=== PATIENT | female | born 1970 | race Hispanic/Latino ===

== ENCOUNTER 2017-08-28 17:38 | Emergency (ER) | payer SELFPAY ==
--- NOTE | 2017-08-28 19:15 | RAD REPORT ---
EXAM DESCRIPTION: RAD - Chest Pa And Lat (2 Views) - 08/28/2017 6:17 pm CLINICAL HISTORY: Cough and congestion, body aches, possible viral infection COMPARISON: November 2011 TECHNIQUE: PA and lateral views of the chest were obtained. FINDINGS: The lungs are clear. Heart size is normal and central vasculature is within normal limit s. No pleural effusion or pneumothorax seen. No acute bony finding noted. No aortic abnormality. IMPRESSION: No acute cardiopulmonary process. No suspicious change from comparison.
--- NOTE | 2017-08-28 19:19 | ER ---
Nurse's Notes [facility] Name: Lauren Rinaldi Age: 47 yrs Sex: Female : 1970 Arrival Date: 08/28/2017 Time: 17:42 Bed 30 Private MD: Diagnosis: Acute upper respiratory infection, unspecified Presentation: 08/28 17:54 Presenting complaint: Patient states: Saturdayaugust 24 i started getting flu like ch sympotoms, cough, congestion, body aches. Transition of care: patient was not received from another setting of care. Onset of symptoms was August 24, 2017. Initial Sepsis Screen: Does the patient meet any 2 criteria? No. Patient's initial sepsis screen is negative. Does the patient have a suspected source of infection? No. Patient's initial sepsis screen is negative. Care prior to arrival: None. theraflu. 17:54 Method Of Arrival: Ambulatory 17:54 Acuity: CLAYTON 3 Triage Assessment: 17:55 General: Appears in no apparent distress. uncomfortable, Behavior is calm, cooperative, appropriate for age. Pain: Denies pain. Respiratory: Airway is patent Respiratory effort is even, unlabored, Breath sounds with wheezes in right posterior lower lobe fine expiratory wheeze. Derm: Skin is pink, warm \T\ dry. TECHNICIAN SUPPORT ASSOCIATION: 17:55 LMP 08/17/2017 Historical: - Allergies: 17:55 No Known Allergies; - Home Meds: 17:55 None [Active]; - PMHx: 17:55 None; - PSHx: 18:00 Tubal ligation; - Immunization history:: Adult Immunizations up to date, Last tetanus immunization: unknown, Flu vaccine is not up to date. - Social history:: Smoking status: Patient/guardian denies using tobacco. Screenin:19 Abuse screen: Denies threats or abuse. Nutritional screening: No deficits noted. mb3 Tuberculosis screening: No symptoms or risk factors identified. Fall Risk None identified. Assessment: 19:12 General: Appears in no apparent distress. comfortable, Behavior is calm, cooperative, mb3 appropriate for age. Neuro: No deficits noted. Level of Consciousness is awake, alert, obeys commands, Oriented to person, place, time, situation. Cardiovascular: No deficits noted. Heart tones present Capillary refill < 3 seconds. Respiratory: Reports cough that is productive, persistent Respiratory effort is even, unlabored, Respiratory pattern is regular, symmetrical, Breath sounds are clear bilaterally. GI: No signs and/or symptoms were reported involving the gastrointestinal system. Abdomen is round obese. : No signs and/or symptoms were reported regarding the genitourinary system. EENT: Reports nasal congestion since Saturday morning nasal discharge that is watery. Musculoskeletal: No signs and/or symptoms reported regarding the musculoskeletal system. 20:10 Reassessment: Patient appears in no apparent distress at this time. Patient is alert, aa1 oriented x 3, equal unlabored respirations, skin warm/dry/pink. Discussed d/c \T\ f/u instructions with pt; denies questions or concerns Patient states feeling better. Vital Signs: 17:55 BP 140 / 85; Pulse 115; Resp 22; Temp 98.3(O); Pulse Ox 99% on R/A; Weight 108.86 kg; ch Height 5 ft. 2 in. (157.48 cm); Pain 1/10; 19:21 BP 151 / 96; Pulse 101; Resp 18; Pulse Ox 100% on R/A; Pain 0/10; mb3 20:10 BP 126 / 79; Pulse 89; Resp 18; Pulse Ox 99% on R/A; aa1 17:55 Body Mass Index 43.90 (108.86 kg, 157.48 cm) ch 17:55 when pt coughs, pain is a 6 ch ED Course: 17:42 Patient arrived in ED. sb2 17:55 Triage completed. ch 17:55 Arm band placed on left wrist. Patient placed in waiting room. ch 18:11 Patient moved to radiology via wheelchair. jb2 18:12 X-ray completed. Patient tolerated procedure well. jb2 18:12 Patient moved back from radiology. jb2 18:13 XRAY Chest Pa And Lat (2 Views) In Process Unspecified. EDMS 18:52 Jesse Aly, DERICK is Primary Nurse. mb3 18:56 Rosario Jeong FNP-C is PHCP. kb 18:56 Edmund Mills MD is Attending Physician. kb 19:20 Patient has correct armband on for positive identification. Bed in low position. Call mb3 light in reach. Side rails up X 1. 19:21 Throat Culture Sent. mb3 20:10 No provider procedures requiring assistance completed. Patient did not have IV access aa1 during this emergency room visit. Administered Medications: No medications were administered Outcome: 19:19 Discharge ordered by . toby 20:10 Discharged to home ambulatory. aa1 20:10 Condition: good 20:10 Discharge instructions given to patient, Instructed on discharge instructions, follow up and referral plans. medication usage, Demonstrated understanding of instructions, follow-up care, medications, Prescriptions given X 1. 20:11 Patient left the ED. aa1 Signatures: Dispatcher [employer] EDMS Rosario Jeong, OPTICAL INSTRUMENT ASSEMBLER-C OPTICAL INSTRUMENT ASSEMBLER-Evie Choi, RN RN Kathleen Crawley RN RN aa1 Jorgito Lagunas2 Tiffani Grijalva2 Jesse Aly, RN RN mb3 Corrections: (The following items were deleted from the chart) 18:00 17:55 PSHx: None; [facility]
--- NOTE | 2017-08-28 19:20 | EDPHYS ---
Physician Documentation [facility] Name: Lauren Rinaldi Age: 47 yrs Sex: Female : 1970 Arrival Date: 08/28/2017 Time: 17:42 Bed 30 Private MD: ED Physician Edmund Mills HPI: 08/28 19:18 This 47 yrs old Female presents to ER via Ambulatory with complaints of Flu kb Symptoms. 19:18 The patient or guardian reports cough, that is intermittent, described as mild, with no kb sputum. Onset: The symptoms/episode began/occurred 5 day(s) ago. Severity of symptoms: At their worst the symptoms were moderate, in the emergency department the symptoms are unchanged. Modifying factors: The symptoms are alleviated by nothing, the symptoms are aggravated by nothing. Associated signs and symptoms: Pertinent positives: rhinorrhea, sore throat, Pertinent negatives: chest pain, diarrhea, ear ache, fever, nausea, vomiting. The patient has not experienced similar symptoms in the past. The patient has not recently seen a physician. NUCLEAR PHYSICIAN: 17:55 LMP 08/17/2017 Historical: - Allergies: 17:55 No Known Allergies; ch - Home Meds: 17:55 None [Active]; ch - PMHx: 17:55 None; ch - PSHx: 18:00 Tubal ligation; ch - Immunization history:: Adult Immunizations up to date, Last tetanus immunization: unknown, Flu vaccine is not up to date. - Social history:: Smoking status: Patient/guardian denies using tobacco. ROS: 19:17 Constitutional: Negative for fever, chills, and weight loss, Cardiovascular: Negative kb for chest pain, palpitations, and edema, Abdomen/GI: Negative for abdominal pain, nausea, vomiting, diarrhea, and constipation, Back: Negative for injury and pain, : Negative for injury, bleeding, discharge, and swelling, MS/Extremity: Negative for injury and deformity, Skin: Negative for injury, rash, and discoloration, Neuro: Negative for headache, weakness, numbness, tingling, and seizure. 19:17 ENT: Positive for rhinorrhea, sinus congestion, sore throat. 19:17 Respiratory: Positive for cough, Negative for dyspnea on exertion, hemoptysis, orthopnea, pleurisy, shortness of breath, sputum production, wheezing. Exam: 19:17 Constitutional: This is a well developed, well nourished patient who is awake, alert, kb and in no acute distress. Head/Face: Normocephalic, atraumatic. Neck: Trachea midline, no thyromegaly or masses palpated, and no cervical lymphadenopathy. Supple, full range of motion without nuchal rigidity, or vertebral point tenderness. No Meningismus. Chest/axilla: Normal chest wall appearance and motion. Nontender with no deformity. No lesions are appreciated. Cardiovascular: Regular rate and rhythm with a normal S1 and S2. No gallops, murmurs, or rubs. Normal PMI, no JVD. No pulse deficits. Respiratory: Lungs have equal breath sounds bilaterally, clear to auscultation and percussion. No rales, rhonchi or wheezes noted. No increased work of breathing, no retractions or nasal flaring. Abdomen/GI: Soft, non-tender, with normal bowel sounds. No distension or tympany. No guarding or rebound. No evidence of tenderness throughout. Skin: Warm, dry with normal turgor. Normal color with no rashes, no lesions, and no evidence of cellulitis. MS/ Extremity: Pulses equal, no cyanosis. Neurovascular intact. Full, normal range of motion. Neuro: Awake and alert, GCS 15, oriented to person, place, time, and situation. Cranial nerves II-XII grossly intact. Motor strength 5/5 in all extremities. Sensory grossly intact. Cerebellar exam normal. Normal gait. 19:17 ENT: External ear(s): are unremarkable, Ear canal(s): are normal, TM's: are normal, Nose: is normal, Mouth: is normal, Posterior pharynx: Airway: normal, no evidence of obstruction, Tonsils: bilaterally enlarged, Uvula: normal, midline, swelling, that is mild, erythema, is not appreciated, exudate, is not appreciated. Vital Signs: 17:55 BP 140 / 85; Pulse 115; Resp 22; Temp 98.3(O); Pulse Ox 99% on R/A; Weight 108.86 kg; ch Height 5 ft. 2 in. (157.48 cm); Pain 1/10; 19:21 BP 151 / 96; Pulse 101; Resp 18; Pulse Ox 100% on R/A; Pain 0/10; mb3 20:10 BP 126 / 79; Pulse 89; Resp 18; Pulse Ox 99% on R/A; aa1 17:55 Body Mass Index 43.90 (108.86 kg, 157.48 cm) 17:55 when pt coughs, pain is a 6 ch MDM: 18:57 Patient medically screened. kb 19:17 Data reviewed: vital signs, nurses notes. Data interpreted: Pulse oximetry: on room air kb is 99 %. Interpretation: normal. Counseling: I had a detailed discussion with the patient and/or guardian regarding: the historical points, exam findings, and any diagnostic results supporting the discharge/admit diagnosis, lab results, radiology results, the need for outpatient follow up, a family practitioner, to return to the emergency department if symptoms worsen or persist or if there are any questions or concerns that arise at home. 08/28 18:00 Order name: Flu; Complete Time: 18:57 08/28 18:00 Order name: Strep; Complete Time: 18:57 08/28 18:00 Order name: XRAY Chest Pa And Lat (2 Views); Complete Time: 19:16 08/28 18:26 Order name: Throat Culture [facility] 08/28 18:58 Order name: Vital Signs; Complete Time: 19:21 kb Administered Medications: No medications were administered Disposition: 22:36 Co-signature as Attending Physician, Edmund Mills MD I agree with the assessment and kdr plan of care. Disposition: 08/28/17 19:19 Discharged to Home. Impression: Acute upper respiratory infection, unspecified. - Condition is Stable. - Discharge Instructions: Upper Respiratory Infection, Adult, [id number]. - Prescriptions for Tessalon Perles 100 mg Oral Capsule - take 1 capsule by ORAL route every 8 hours As needed; 15 capsule. - Medication Reconciliation Form, Thank You Letter, Antibiotic Education, Prescription Opioid Use, Work release form form. - Follow up: Emergency Department; When: As needed; Reason: Worsening of condition. Follow up: Private Physician; When: 2 - 3 days; Reason: Recheck today's complaints, Continuance of care, Re-evaluation by your physician. Signatures: Dispatcher [facility] Rosario Jeong FNP-C FNP-Ckb Hammond, Christina RN RN Kathleen Crawley RN RN aa Edmund Mills MD MD kdr Corrections: (The following items were deleted from the chart) 18:00 17:55 PSHx: None; [facility] 20:11 19:19 08/28/2017 19:19 Discharged to Home. Impression: Acute upper respiratory aa1 infection, unspecified. Condition is Stable. Forms are Medication Reconciliation Form, Thank You Letter, Antibiotic Education, Prescription Opioid Use. Follow up: Emergency Department; When: As needed; Reason: Worsening of condition. Follow up: Private Physician; When: 2 - 3 days; Reason: Recheck today's complaints, Continuance of care, Re-evaluation by your physician. kb
[2017-08-28 20:22] VITALS: TEMP 98.3
[2017-08-28 20:24] VITALS: BP 126/79; O2SAT 99
== END 2017-08-28 20:11 | disposition home or self-care (01) ==
LOC: ER 17:38
DX: J06.9 Acute upper respiratory infection, unspecified (principal)
CPT/HCPCS: 71046; 87070; 87081; 87804; 99283

== ENCOUNTER 2017-11-29 16:18 | Emergency (ER) | payer SELFPAY ==
[2017-11-29] MEDS ORDERED: IBUPROFEN 400 MG TAB ONE (16:37)
--- NOTE | 2017-11-29 17:06 | RAD REPORT ---
EXAM DESCRIPTION: RAD - Ankle Right 3 View - 11/29/2017 4:59 pm CLINICAL HISTORY: PAIN COMPARISON: No comparisons FINDINGS: Soft tissue swelling is seen in the region of the lateral malleolus. Minimal bony fragment ation in the region may be acute or chronic avulsion injury. Prominent calcaneal spur seen.
--- NOTE | 2017-11-29 17:28 | EDPHYS ---
Physician Documentation [facility] Name: Lauren Rinaldi Age: 47 yrs Sex: Female : 1970 Arrival Date: 11/29/2017 Time: 16:20 Bed 14 Private MD: None, None ED Physician Efrain Vazquez HPI: 11/29 16:33 This 47 yrs old Female presents to ER via Ambulatory with complaints of Ankle cp Injury. 16:33 The patient presents with pain, that is acute. The complaints affect the right medial cp malleolus. Onset: The symptoms/episode began/occurred today. Context: The problem was sustained at home, resulted from striking area against bed yesterday. Associated signs and symptoms: Pertinent negatives: fever, numbness, tingling. Modifying factors: the symptoms are aggravated by weight bearing. 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 - Social history:: Smoking status: Patient/guardian denies using tobacco, Patient/guardian denies using alcohol. - Ebola Screening: : Patient negative for fever greater than or equal to 101.5 degrees Fahrenheit, and additional compatible Ebola Virus Disease symptoms Patient denies exposure to infectious person Patient denies travel to an Ebola-affected area in the 21 days before illness onset. ROS: 16:35 Constitutional: Negative for body aches, chills, fever, poor PO intake. cp 16:35 Eyes: Negative for injury, pain, redness, and discharge. cp 16:35 ENT: Negative for drainage from ear(s), ear pain, sore throat, difficulty swallowing, difficulty handling secretions. 16:35 Cardiovascular: Negative for chest pain, edema, palpitations. 16:35 Respiratory: Negative for cough, shortness of breath, wheezing. 16:35 Abdomen/GI: Negative for abdominal pain, nausea, vomiting, and diarrhea. 16:35 MS/extremity: Positive for pain, tenderness, of the right medial malleolus, Negative for decreased range of motion, deformity, paresthesias. 16:35 Skin: Negative for cellulitis, rash. 16:35 Neuro: Negative for numbness, tingling, weakness. 16:35 All other systems are negative. Exam: 16:48 Constitutional: The patient appears in no acute distress, alert, awake, comfortable, cp well developed, well nourished. 16:48 Head/Face: Normocephalic, atraumatic. cp 16:48 Eyes: Periorbital structures: appear normal, Conjunctiva: normal, no exudate, no cp injection, Lids and lashes: appear normal, bilaterally. 16:48 ENT: External ear(s): are unremarkable, Nose: is normal, Posterior pharynx: is normal, airway is patent. 16:48 Chest/axilla: Inspection: normal. cp 16:48 Cardiovascular: Rate: normal. 16:48 Respiratory: the patient does not display signs of respiratory distress, Respirations: normal, no use of accessory muscles, no retractions, no splinting, no tachypnea. 16:48 Abdomen/GI: Exam negative for discomfort, distension, guarding, Inspection: abdomen appears normal. 16:48 Back: pain, is absent, ROM is normal. 16:48 Musculoskeletal/extremity: Extremities: grossly normal except: noted in the right medial malleolus: swelling, tenderness, There is no evidence of decreased ROM, deformity, Perfusion: the extremity is normally perfused throughout, Sensation intact. 16:48 Skin: cellulitis, is not appreciated, no rash present. Vital Signs: 16:23 BP 126 / 79; Pulse 90; Resp 18; Temp 97.96(TE); Pulse Ox 97% on R/A; Weight 99.79 kg; hj Height 5 ft. 2 in. (157.48 cm); Pain 4/10; 16:23 Body Mass Index 40.24 (99.79 kg, 157.48 cm) hj MDM: 16:25 Patient medically screened. cp 17:00 Differential diagnosis: fracture, sprain, contusion, dislocation. cp 17:25 Data reviewed: vital signs, nurses notes, radiologic studies, plain films. cp 17:25 Test interpretation: by ED physician or midlevel provider: plain radiologic studies. cp Counseling: I had a detailed discussion with the patient and/or guardian regarding: the historical points, exam findings, and any diagnostic results supporting the discharge/admit diagnosis, radiology results, to return to the emergency department if symptoms worsen or persist or if there are any questions or concerns that arise at home. 11/29 16:31 Order name: XRAY Ankle RIGHT 3 view; Complete Time: 17:21 cp 11/29 17:22 Interpretation: Report reviewed. cp Administered Medications: 16:34 Drug: Ibuprofen 800 mg Route: PO; la1 17:14 Follow up: Response: No adverse reaction; Pain is decreased em Disposition: 11/29/17 17:27 Discharged to Home. Impression: Pain in right ankle and joints of right foot. - Condition is Stable. - Discharge Instructions: Ankle Pain. - Prescriptions for Ibuprofen 800 mg Oral Tablet - take 1 tablet by ORAL route every 8 hours As needed take with food; 30 tablet. - Medication Reconciliation Form, Thank You Letter, Antibiotic Education, Prescription Opioid Use form. - Follow up: Private Physician; When: 5 - 6 days; Reason: if pain continues. - Problem is new. - Symptoms have improved. Addendum: 12/03/2017 22:13 Co-signature as Attending Physician, Efrain Vazquez MD Available for consultation at p s1 all times. . Signatures: Dispatcher [employer] EDOH Edvin Reyna, EMAIL PRODUCTION SPECIALIST EMAIL PRODUCTION SPECIALIST em Los Rouse RN RN la1 Maurilio Lindo RN RN hj Yunior Vaz, JOSSUE PA Efrain Chino MD MD ps1 Corrections: (The following items were deleted from the chart) 11/29 17:43 17:27 11/29/2017 17:27 Discharged to Home. Impression: Pain in right ankle and joints em of right foot. Condition is Stable. Forms are Medication Reconciliation Form, Thank You Letter, Antibiotic Education, Prescription Opioid Use. Follow up: Private Physician; When: 5 - 6 days; Reason: if pain continues. Problem is new. Symptoms have improved. cp
--- NOTE | 2017-11-29 17:28 | ER ---
Nurse's Notes [facility] Name: Lauren Rinaldi Age: 47 yrs Sex: Female : 1970 Arrival Date: 11/29/2017 Time: 16:20 Bed 14 Private MD: None, None Diagnosis: Pain in right ankle and joints of right foot Presentation: 11/29 16:21 Presenting complaint: Patient states: i hurt my R ankle yesterday on the bed; denies hj swelling; pain 07/30;. Transition of care: patient was not received from another setting of care. Onset of symptoms was November 29, 2017. Risk Assessment: Do you want to hurt yourself or someone else? Patient reports no desire to harm self or others. Initial Sepsis Screen: Does the patient meet any 2 criteria? No. Patient's initial sepsis screen is negative. Does the patient have a suspected source of infection? No. Patient's initial sepsis screen is negative. Care prior to arrival: None. 16:21 Method Of Arrival: Ambulatory 16:21 Acuity: CLAYTON 4 hj Triage Assessment: 16:22 General: Appears in no apparent distress. uncomfortable, Behavior is calm, cooperative, hj appropriate for age. Pain: Complains of pain in right medial malleolus. Musculoskeletal: Reports pain in right medial malleolus. 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 - Social history:: Smoking status: Patient/guardian denies using tobacco, Patient/guardian denies using alcohol. - Ebola Screening: : Patient negative for fever greater than or equal to 101.5 degrees Fahrenheit, and additional compatible Ebola Virus Disease symptoms Patient denies exposure to infectious person Patient denies travel to an Ebola-affected area in the 21 days before illness onset. Screenin:22 Abuse screen: Denies threats or abuse. Denies injuries from another. Nutritional hj screening: No deficits noted. Tuberculosis screening: No symptoms or risk factors identified. Fall Risk None identified. Assessment: 16:35 Reassessment: Patient is alert, oriented x 3, equal unlabored respirations, skin la1 warm/dry/pink. Musculoskeletal: Circulation, motion, and sensation intact. Capillary refill < 3 seconds, is brisk, in bilateral toes. Range of motion: limited in right ankle. 17:15 Reassessment: Patient appears in no apparent distress at this time. Patient and/or em family updated on plan of care and expected duration. Pain level reassessed. Patient is alert, oriented x 3, equal unlabored respirations, skin warm/dry/pink. Patient states feeling better. Vital Signs: 16:23 BP 126 / 79; Pulse 90; Resp 18; Temp 97.96(TE); Pulse Ox 97% on R/A; Weight 99.79 kg; hj Height 5 ft. 2 in. (157.48 cm); Pain 4/10; 16:23 Body Mass Index 40.24 (99.79 kg, 157.48 cm) hj ED Course: 16:20 Patient arrived in ED. sb2 16:20 None, None is Private Physician. sb2 16:22 Triage completed. hj 16:23 Arm band placed on left wrist. hj 16:24 Patient has correct armband on for positive identification. Bed in low position. Call hj light in reach. Side rails up X 1. 16:25 Yunior Vaz PA is PHCP. cp 16:25 Efrain Vazquez MD is Attending Physician. cp 16:34 Los Rouse, DERICK is Primary Nurse. la1 16:35 No provider procedures requiring assistance completed. Patient did not have IV access la1 during this emergency room visit. 16:59 X-ray completed. Portable x-ray completed in exam room. Patient tolerated procedure ml well. 17:00 XRAY Ankle RIGHT 3 view In Process Unspecified. EDMS Administered Medications: 16:34 Drug: Ibuprofen 800 mg Route: PO; la1 17:14 Follow up: Response: No adverse reaction; Pain is decreased em Outcome: 17:27 Discharge ordered by . cp 17:43 Discharged to home ambulatory. em 17:43 Condition: good 17:43 Discharge instructions given to patient, Instructed on discharge instructions, follow up and referral plans. medication usage, Demonstrated understanding of instructions, follow-up care, medications, Prescriptions given X 1. 17:43 Patient left the ED. em Signatures: Dispatcher [employer] EDMS Edvin Reyna LVN CYLINDER MACHINE OPERATOR PULP DRIER Imelda Levine Lee, RN RN la1 Maurilio Lindo RN RN hj Yunior Vaz PA PA cp Billeau, Sheri sb2 Corrections: (The following items were deleted from the chart) 16:25 16:23 Pulse 90bpm; Resp 18bpm; Pulse Ox 97% RA; Temp 97.96F Temporal; 99.79 kg; Height hj 5 ft. 2 in.; BMI: 40.2; Pain 4/10; hj
== END 2017-11-29 17:43 | disposition home or self-care (01) ==
LOC: ER 16:18
DX: M25.571 Pain in right ankle and joints of right foot (principal)
CPT/HCPCS: 99283

== ENCOUNTER 2018-04-14 09:50 | Emergency (ER) | payer SELFPAY ==
--- NOTE | 2018-04-14 10:22 | ER ---
Nurse's Notes [facility] Name: Lauren Rinaldi Age: 47 yrs Sex: Female : 1970 Arrival Date: 04/14/2018 Time: 09:51 Bed 24 Private MD: None, None Diagnosis: Fever, unspecified;Acute upper respiratory infection, unspecified Presentation: 04/14 10:10 Presenting complaint: Patient states: cough, sore throat, congestion on and off x 2 aa5 weeks ago. Pt reports it got worse 3 days ago. Transition of care: patient was not received from another setting of care. Onset of symptoms was March 2018. Risk Assessment: Do you want to hurt yourself or someone else? Patient reports no desire to harm self or others. Initial Sepsis Screen: Does the patient meet any 2 criteria? No. Patient's initial sepsis screen is negative. Does the patient have a suspected source of infection? No. Patient's initial sepsis screen is negative. Care prior to arrival: None. 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 - Social history:: Smoking status: Patient/guardian denies using tobacco. - Ebola Screening: : No symptoms or risks identified at this time. - Family history:: not pertinent. Screenin:36 Abuse screen: Denies threats or abuse. Denies injuries from another. Nutritional aj screening: No deficits noted. Tuberculosis screening: No symptoms or risk factors identified. Fall Risk None identified. Assessment: 10:36 General: Appears in no apparent distress. comfortable, Behavior is calm, cooperative, aj appropriate for age. Pain: Denies pain. Neuro: Level of Consciousness is awake, alert, obeys commands, Oriented to person, place, time, situation, Appropriate for age. Respiratory: Airway is patent Respiratory effort is even, unlabored, Respiratory pattern is regular, symmetrical, Breath sounds are clear bilaterally. Respiratory: Reports cough that is. EENT: Throat is reddened. Derm: Skin is intact, is healthy with good turgor, Skin is pink, warm \T\ dry. normal. Vital Signs: 10:11 BP 158 / 94; Pulse 99; Resp 18 S; Temp 99.1(O); Pulse Ox 97% on R/A; Weight 124.74 kg aa5 (R); Height 5 ft. 2 in. (157.48 cm) (R); Pain 6/10; 10:11 Body Mass Index 50.30 (124.74 kg, 157.48 cm) aa5 ED Course: 09:51 Patient arrived in ED. sb2 09:51 None, None is Private Physician. sb2 10:10 Triage completed. aa5 10:10 Arm band placed on. aa 10:13 Yunior Amaro MD is Attending Physician. [facility] 10:15 Radha Maravilla RN is Primary Nurse. aj 10:36 Patient has correct armband on for positive identification. aj 10:36 No provider procedures requiring assistance completed. Patient did not have IV access aj during this emergency room visit. Administered Medications: 10:21 CANCELLED (Duplicate Order): Zithromax 500 mg PO once [place] 10:37 Drug: Augmentin 875 mg Route: PO; aj 10:57 Follow up: Response: No adverse reaction Outcome: 10:22 Discharge ordered by . [place]andria 10:57 Discharged to home ambulatory. aj 10:57 Condition: good 10:57 Discharge instructions given to patient, Instructed on discharge instructions, follow up and referral plans. medication usage, Demonstrated understanding of instructions, follow-up care, medications, Prescriptions given X 1. 10:57 Patient left the ED. aj Signatures: Radha Maravilla, RN RN Yunior Andujar MD MD cha Calderon, Audri RN RN aa5 Tiffani Grijalva sb2
--- NOTE | 2018-04-14 10:23 | EDPHYS ---
Physician Documentation [facility] Name: Lauren Rinaldi Age: 47 yrs Sex: Female : 1970 Arrival Date: 04/14/2018 Time: 09:51 Bed 24 Private MD: None, None ED Physician Yunior Amaro HPI: 04/14 10:18 This 47 yrs old Female presents to ER via Ambulatory with complaints of Sore alexandria Throat, STUFFY NOSE. 10:18 The patient presents with sore throat. The patient describes throat pain as burning, alexandria constant. Onset: The symptoms/episode began/occurred 2 day(s) ago. 10:18 Severity of symptoms: At their worst the symptoms were mild, in the emergency alexandria department the symptoms are unchanged. Modifying factors: The symptoms are alleviated by nothing, the symptoms are aggravated by nothing. Associated signs and symptoms: Pertinent positives: cough, Sore throat. 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 - Social history:: Smoking status: Patient/guardian denies using tobacco. - Ebola Screening: : No symptoms or risks identified at this time. - Family history:: not pertinent. ROS: 10:18 Constitutional: Negative for fever, chills, and weight loss, Eyes: Negative for injury, [place]andria pain, redness, and discharge, Neck: Negative for injury, pain, and swelling, Cardiovascular: Negative for chest pain, palpitations, and edema, Respiratory: Negative for shortness of breath, cough, wheezing, and pleuritic chest pain, Abdomen/GI: Negative for abdominal pain, nausea, vomiting, diarrhea, and constipation, Back: Negative for injury and pain, : Negative for injury, bleeding, discharge, and swelling, MS/Extremity: Negative for injury and deformity, Skin: Negative for injury, rash, and discoloration, Neuro: Negative for headache, weakness, numbness, tingling, and seizure. 10:18 ENT: Positive for rhinorrhea, sore throat. Exam: 10:18 Constitutional: This is a well developed, well nourished patient who is awake, alert, alexandria and in no acute distress. Head/Face: Normocephalic, atraumatic. Eyes: Pupils equal round and reactive to light, extra-ocular motions intact. Lids and lashes normal. Conjunctiva and sclera are non-icteric and not injected. Cornea within normal limits. Periorbital areas with no swelling, redness, or edema. Neck: Trachea midline, no thyromegaly or masses palpated, and no cervical lymphadenopathy. Supple, full range of motion without nuchal rigidity, or vertebral point tenderness. No Meningismus. Chest/axilla: Normal chest wall appearance and motion. Nontender with no deformity. No lesions are appreciated. Cardiovascular: Regular rate and rhythm with a normal S1 and S2. No gallops, murmurs, or rubs. Normal PMI, no JVD. No pulse deficits. Respiratory: Lungs have equal breath sounds bilaterally, clear to auscultation and percussion. No rales, rhonchi or wheezes noted. No increased work of breathing, no retractions or nasal flaring. Abdomen/GI: Soft, non-tender, with normal bowel sounds. No distension or tympany. No guarding or rebound. No evidence of tenderness throughout. Back: No spinal tenderness. No costovertebral tenderness. Full range of motion. Skin: Warm, dry with normal turgor. Normal color with no rashes, no lesions, and no evidence of cellulitis. MS/ Extremity: Pulses equal, no cyanosis. Neurovascular intact. Full, normal range of motion. Neuro: Awake and alert, GCS 15, oriented to person, place, time, and situation. Cranial nerves II-XII grossly intact. Motor strength 5/5 in all extremities. Sensory grossly intact. Cerebellar exam normal. Normal gait. Psych: Awake, alert, with orientation to person, place and time. Behavior, mood, and affect are within normal limits. 10:18 ENT: Nose: Posterior pharynx: Tonsils: are normal in appearance, Uvula: normal, swelling, is not appreciated, erythema, that is mild, exudate, is not appreciated. Vital Signs: 10:11 BP 158 / 94; Pulse 99; Resp 18 S; Temp 99.1(O); Pulse Ox 97% on R/A; Weight 124.74 kg aa5 (R); Height 5 ft. 2 in. (157.48 cm) (R); Pain 6/10; 10:11 Body Mass Index 50.30 (124.74 kg, 157.48 cm) aa5 MDM: 10:14 Patient medically screened. [facility] 10:20 Data reviewed: vital signs, nurses notes. [facility] Administered Medications: 10:21 CANCELLED (Duplicate Order): Zithromax 500 mg PO once [facility] 10:37 Drug: Augmentin 875 mg Route: PO; 10:57 Follow up: Response: No adverse reaction Disposition: 04/14/18 10:22 Discharged to Home. Impression: Fever, unspecified, Acute upper respiratory infection, unspecified. - Condition is Stable. - Discharge Instructions: Upper Respiratory Infection, Adult, Cool Mist Vaporizer, Upper Respiratory Infection, Adult, [id number], Cough, Adult. - Prescriptions for Augmentin 875- 125 mg Oral Tablet - take 1 tablet by ORAL route every 12 hours for 10 days; 20 tablet. - Medication Reconciliation Form, Thank You Letter, Antibiotic Education, Prescription Opioid Use form. - Follow up: Private Physician; When: 2 - 3 days; Reason: Recheck today's complaints, Continuance of care, Re-evaluation by your physician. - Problem is new. - Symptoms have improved. Signatures: Dispatcher [employer] EDRadha Bolivar RN RN aj Anderson, Corey, MD MD cha Calderon, Audri, RN RN aa5 Corrections: (The following items were deleted from the chart) 10:21 10:18 Zithromax 500 mg PO once ordered. [facility] 10:35 10:16 Influenza Screen (A \T\ B)+BA.LAB.BRZ ordered. [facility] 10:35 10:16 Group A Streptococcus Rapid Sc+BA.LAB.BRZ ordered. [facility] 10:57 10:22 04/14/2018 10:22 Discharged to Home. Impression: Fever, unspecified; Acute upper aj respiratory infection, unspecified. Condition is Stable. Forms are Medication Reconciliation Form, Thank You Letter, Antibiotic Education, Prescription Opioid Use. Follow up: Private Physician; When: 2 - 3 days; Reason: Recheck today's complaints, Continuance of care, Re-evaluation by your physician. Problem is new. Symptoms have improved. [facility]
[2018-04-14] MEDS ORDERED: AMOX/K CLAV 875 MG TAB ONE (10:43)
== END 2018-04-14 10:57 | disposition home or self-care (01) ==
LOC: ER 09:50
DX: J06.9 Acute upper respiratory infection, unspecified (principal)
CPT/HCPCS: 99283

== ENCOUNTER 2018-05-24 12:27 | Emergency (ER) | payer SELFPAY ==
[2018-05-24] MEDS ORDERED: IPRATROPIUM BROM 0.5MG/2.5ML ONE (12:51)
[2018-05-24] MEDS ORDERED: ALBUTEROL 2.5 MG/3 ML NEB SOL ONE (12:51)
--- NOTE | 2018-05-24 13:28 | ER ---
Nurse's Notes [facility] Name: Lauren Rinaldi Age: 48 yrs Sex: Female : 1970 Arrival Date: 05/24/2018 Time: 12:30 Bed 12 Private MD: Diagnosis: Acute upper respiratory infection, unspecified Presentation: 05/24 12:34 Presenting complaint: Patient states: Sore throat and cough for one day, pt reports la1 others at work are sick with similar sx, also reprots diarrhea, denies vomiting. Transition of care: patient was not received from another setting of care. Onset of symptoms was May 24, 2018. Risk Assessment: Do you want to hurt yourself or someone else? Patient reports no desire to harm self or others. Initial Sepsis Screen: Does the patient meet any 2 criteria? No. Patient's initial sepsis screen is negative. Does the patient have a suspected source of infection? No. Patient's initial sepsis screen is negative. Care prior to arrival: None. 12:34 Method Of Arrival: Ambulatory la1 12:34 Acuity: CLAYTON 4 la1 Triage Assessment: 13:30 General: Appears in no apparent distress. Behavior is calm. 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 - Social history:: Smoking status: Patient/guardian denies using tobacco. - Ebola Screening: : No symptoms or risks identified at this time. Screenin:34 Abuse screen: Denies threats or abuse. Denies injuries from another. Nutritional iw screening: No deficits noted. Tuberculosis screening: No symptoms or risk factors identified. Fall Risk None identified. Assessment: 13:00 General: Appears in no apparent distress. Behavior is calm, cooperative. Pain: iw Complains of pain in throat. Neuro: Level of Consciousness is awake, alert, obeys commands, Oriented to person, place, time, situation, Moves all extremities. Full function. Cardiovascular: Capillary refill < 3 seconds in bilateral fingers. Respiratory: Reports cough that is Airway is patent Respiratory effort is even, unlabored, Breath sounds are clear bilaterally. EENT: Throat is reddened. Derm: Skin is intact, is healthy with good turgor. Musculoskeletal: Range of motion: intact in all extremities. Vital Signs: 12:35 BP 151 / 102; Pulse 113; Resp 18; Temp 97.8; Pulse Ox 98% on R/A; Weight 108.86 kg; la1 Height 5 ft. 2 in. (157.48 cm); 12:35 Body Mass Index 43.90 (108.86 kg, 157.48 cm) la1 ED Course: 12:30 Patient arrived in ED. mr 12:31 Rosario Jeong FNP-C [facility] kb 12:31 Efrain Vazquez MD is Attending Physician. kb 12:34 Triage completed. la1 12:35 Arm band placed on left wrist. la1 12:39 Leslie Wiley, RN is Primary Nurse. iw 13:00 Patient has correct armband on for positive identification. iw 13:34 No provider procedures requiring assistance completed. Patient did not have IV access iw during this emergency room visit. Administered Medications: 12:44 Drug: DuoNeb (3:1) (2.5 mg - 0.5 mg) 3 ml Route: Nebulizer; iw Outcome: 13:27 Discharge ordered by . kb 13:34 Discharged to home ambulatory. iw 13:34 Condition: good 13:34 Discharge instructions given to patient, Instructed on discharge instructions, follow up and referral plans. Demonstrated understanding of instructions, follow-up care, medications, Prescriptions given X 1. 13:35 Patient left the ED. iw Signatures: Rosario Jeong FNP-C FNP-Ckb Rivera, Mary mr Leslie Wiley, RN DERICK iw Los Rouse RN RN la
--- NOTE | 2018-05-24 13:28 | EDPHYS ---
Physician Documentation [facility] Name: Lauren Rinaldi Age: 48 yrs Sex: Female : 1970 Arrival Date: 05/24/2018 Time: 12:30 Bed 12 Private MD: ED Physician Efrain Vazquez HPI: 05/24 12:43 This 48 yrs old Female presents to ER via Ambulatory with complaints of Cough, kb Sore Throat. 12:43 The patient or guardian reports cough, that is intermittent, described as moderate, kb with no sputum, flu symptoms, low-grade fever, myalgias. Onset: The symptoms/episode began/occurred yesterday. Severity of symptoms: At their worst the symptoms were mild, moderate, in the emergency department the symptoms are unchanged. Modifying factors: The symptoms are alleviated by nothing, the symptoms are aggravated by nothing. Associated signs and symptoms: Pertinent positives: diarrhea, fever, rhinorrhea, sore throat, Pertinent negatives: chest pain, ear ache, nausea, vomiting. The patient has not experienced similar symptoms in the past. The patient has not recently seen a physician. 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 - Social history:: Smoking status: Patient/guardian denies using tobacco. - Ebola Screening: : No symptoms or risks identified at this time. ROS: 12:40 Neck: Negative for injury, pain, and swelling, Cardiovascular: Negative for chest pain, kb palpitations, and edema, Back: Negative for injury and pain, : Negative for injury, bleeding, discharge, and swelling, MS/Extremity: Negative for injury and deformity, Skin: Negative for injury, rash, and discoloration, Neuro: Negative for headache, weakness, numbness, tingling, and seizure. 12:40 Constitutional: Positive for body aches, chills, fatigue, malaise, Negative for fever, poor PO intake, weight loss. 12:40 ENT: Positive for rhinorrhea, sore throat. 12:40 Respiratory: Positive for cough, Negative for dyspnea on exertion, hemoptysis, orthopnea, pleurisy, shortness of breath, sputum production, wheezing. 12:41 Abdomen/GI: Positive for diarrhea, Negative for abdominal pain, nausea and vomiting. kb Exam: 12:41 Constitutional: This is a well developed, well nourished patient who is awake, alert, kb and in no acute distress. Head/Face: Normocephalic, atraumatic. ENT: Nares patent. No nasal discharge, no septal abnormalities noted. Tympanic membranes are normal and external auditory canals are clear. Oropharynx with no redness, swelling, or masses, exudates, or evidence of obstruction, uvula midline. Mucous membranes moist. Neck: Trachea midline, no thyromegaly or masses palpated, and no cervical lymphadenopathy. Supple, full range of motion without nuchal rigidity, or vertebral point tenderness. No Meningismus. Chest/axilla: Normal chest wall appearance and motion. Nontender with no deformity. No lesions are appreciated. Cardiovascular: Regular rate and rhythm with a normal S1 and S2. No gallops, murmurs, or rubs. Normal PMI, no JVD. No pulse deficits. Abdomen/GI: Soft, non-tender, with normal bowel sounds. No distension or tympany. No guarding or rebound. No evidence of tenderness throughout. Back: No spinal tenderness. No costovertebral tenderness. Full range of motion. Skin: Warm, dry with normal turgor. Normal color with no rashes, no lesions, and no evidence of cellulitis. MS/ Extremity: Pulses equal, no cyanosis. Neurovascular intact. Full, normal range of motion. Neuro: Awake and alert, GCS 15, oriented to person, place, time, and situation. Cranial nerves II-XII grossly intact. Motor strength 5/5 in all extremities. Sensory grossly intact. Cerebellar exam normal. Normal gait. 12:41 Respiratory: the patient does not display signs of respiratory distress, Respirations: normal, Breath sounds: wheezing: expiratory that is mild, is scattered. Vital Signs: 12:35 BP 151 / 102; Pulse 113; Resp 18; Temp 97.8; Pulse Ox 98% on R/A; Weight 108.86 kg; la1 Height 5 ft. 2 in. (157.48 cm); 12:35 Body Mass Index 43.90 (108.86 kg, 157.48 cm) la1 MDM: 12:36 Patient medically screened. kb 12:40 Data reviewed: vital signs, nurses notes. Data interpreted: Pulse oximetry: on room air kb is 98 %. Interpretation: normal. 13:27 Counseling: I had a detailed discussion with the patient and/or guardian regarding: the kb historical points, exam findings, and any diagnostic results supporting the discharge/admit diagnosis, lab results, the need for outpatient follow up, a family practitioner, to return to the emergency department if symptoms worsen or persist or if there are any questions or concerns that arise at home. 05/24 12:37 Order name: Flu; Complete Time: 13:17 iw 05/24 12:37 Order name: Strep; Complete Time: 13:02 iw 05/24 13:03 Order name: Throat Culture EDMS Administered Medications: 12:44 Drug: DuoNeb (3:1) (2.5 mg - 0.5 mg) 3 ml Route: Nebulizer; iw Disposition: 18:50 Co-signature as Attending Physician, Efrain Vazquez MD Available for consultation at ps1 all times . Chart complete. Disposition: 05/24/18 13:27 Discharged to Home. Impression: Acute upper respiratory infection, unspecified. - Condition is Stable. - Discharge Instructions: Upper Respiratory Infection, Adult, [id number]. - Prescriptions for Albuterol Sulfate 90 mcg/actuation - inhale 1-2 puff by INHALATION route every 4-6 hours; 1 Inhaler. - Medication Reconciliation Form, Thank You Letter, Antibiotic Education, Prescription Opioid Use form. - Follow up: Emergency Department; When: As needed; Reason: Worsening of condition. Follow up: Private Physician; When: 2 - 3 days; Reason: Recheck today's complaints, Continuance of care, Re-evaluation by your physician. Signatures: Dispatcher [employer] EDRosario Scherer, COATING LINE WORKER-C COATING LINE WORKER-Ckb Leslie Wiley, RN Los Leblanc RN RN laEfrain Card MD MD ps1 Corrections: (The following items were deleted from the chart) 13:35 13:27 05/24/2018 13:27 Discharged to Home. Impression: Acute upper respiratory iw infection, unspecified. Condition is Stable. Forms are Medication Reconciliation Form, Thank You Letter, Antibiotic Education, Prescription Opioid Use. Follow up: Emergency Department; When: As needed; Reason: Worsening of condition. Follow up: Private Physician; When: 2 - 3 days; Reason: Recheck today's complaints, Continuance of care, Re-evaluation by your physician. kb
[2018-05-24 13:39] VITALS: BP 151/102; TEMP 97.8; O2SAT 98
== END 2018-05-24 13:35 | disposition home or self-care (01) ==
LOC: ER 12:27
DX: J06.9 Acute upper respiratory infection, unspecified (principal)
CPT/HCPCS: 87070; 87081; 87804; 94640; 99284

== ENCOUNTER 2019-05-13 19:18 | Emergency (ER) | payer SELFPAY ==
--- NOTE | 2019-05-13 21:32 | ER ---
Nurse's Notes [facility] Name: Lauren Rinaldi Age: 49 yrs Sex: Female : 1970 Arrival Date: 05/13/2019 Time: 19: Bed 19 Private MD: Diagnosis: Low back pain Presentation: 05/13 20:01 Presenting complaint: Patient states: Crampy pain that starts in the middle of the low ca1 back that radiates to the R and L lower abdominal area. Intermittent and began a couple a days ago. Denies N/V/Diarrhea. Denies urinary symptom and fever. Transition of care: patient was not received from another setting of care. Onset of symptoms was May 13, 2019. Risk Assessment: Do you want to hurt yourself or someone else? Patient reports no desire to harm self or others. Initial Sepsis Screen: Does the patient meet any 2 criteria? No. Patient's initial sepsis screen is negative. Does the patient have a suspected source of infection? No. Patient's initial sepsis screen is negative. Care prior to arrival: None. 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 - Social history:: Smoking status: Patient denies any tobacco usage or history of. - Ebola Screening: : Patient negative for fever greater than or equal to 101.5 degrees Fahrenheit, and additional compatible Ebola Virus Disease symptoms Patient denies exposure to infectious person Patient denies travel to an Ebola-affected area in the 21 days before illness onset No symptoms or risks identified at this time. Screenin:51 Abuse screen: Denies threats or abuse. Nutritional screening: No deficits noted. ea Tuberculosis screening: No symptoms or risk factors identified. Fall Risk None identified. Assessment: 20:15 General: Appears uncomfortable, Behavior is calm, cooperative, appropriate for age. ea Pain: Complains of pain in abdomen. Neuro: Level of Consciousness is awake, alert, obeys commands, Oriented to person, place, time, situation. Cardiovascular: Patient's skin is warm and dry. Respiratory: Airway is patent Respiratory effort is even, unlabored, Respiratory pattern is regular, symmetrical. Derm: Skin is pink, warm \T\ dry. 21:42 Reassessment: Patient and/or family updated on plan of care and expected duration. Pain ea level reassessed. Patient is alert, oriented x 3, equal unlabored respirations, skin warm/dry/pink. Discharge instruction given to patient, verbalized the understanding of instruction. Pt left ED ambulatory accompanied by family. Vital Signs: 20:05 BP 148 / 82; Pulse 87; Resp 18 S; Temp 98.1(O); Pulse Ox 100% on R/A; Weight 127.01 kg ca1 (R); Height 5 ft. 2 in. (157.48 cm); Pain 2/10; 20:05 Body Mass Index 51.21 (127.01 kg, 157.48 cm) ca1 ED Course: 19:22 Patient arrived in ED. mr 20:01 Raysa Melchor, RN is Primary Nurse. ca1 20:04 Triage completed. ca1 20:05 Arm band placed on right wrist. ca1 20:28 Los Rouse FNP-C [facility]. la1 20:28 Steven Voss MD is Attending Physician. la1 20:51 Patient has correct armband on for positive identification. Placed in gown. Bed in low ea position. Call light in reach. 21:42 No provider procedures requiring assistance completed. Patient did not have IV access ea during this emergency room visit. Administered Medications: No medications were administered Outcome: 21:32 Discharge ordered by . la1 21:43 Discharged to home ambulatory, with family. ea 21:43 Condition: stable 21:43 Discharge instructions given to patient, Instructed on discharge instructions, follow up and referral plans. medication usage, Demonstrated understanding of instructions, follow-up care, medications, Prescriptions given X 1. 21:44 Patient left the ED. ea Signatures: Zain Wendi mr Los Rouse FNP-C SAGGER MAKER-Cla1 Diann Jarrett RN RN ea Raysa Melchor RN RN ca1
--- NOTE | 2019-05-13 21:33 | EDPHYS ---
Physician Documentation [facility] Name: Lauren Rinaldi Age: 49 yrs Sex: Female : 1970 Arrival Date: 05/13/2019 Time: : Bed 19 Private MD: ED Physician Steven Voss HPI: 05/13 21:15 This 49 yrs old Female presents to ER via Ambulatory with complaints of Back la1 Pain, Abdominal Pain. 21:15 The patient presents with pain that is acute. The symptoms are located in the low back. la1 Onset: The symptoms/episode began/occurred 4 day(s) ago. The pain does not radiate. Associated signs and symptoms: Pertinent negatives: fever, headache, hematuria, incontinence, nausea, numbness, tingling, urinary retention, vomiting, weakness. The problem was sustained from unknown cause. Modifying factors: The patient symptoms are alleviated by nothing. Severity of symptoms: At their worst the symptoms were moderate. The patient has not experienced similar symptoms in the past. 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 - Social history:: Smoking status: Patient denies any tobacco usage or history of. - Ebola Screening: : Patient negative for fever greater than or equal to 101.5 degrees Fahrenheit, and additional compatible Ebola Virus Disease symptoms Patient denies exposure to infectious person Patient denies travel to an Ebola-affected area in the 21 days before illness onset No symptoms or risks identified at this time. ROS: 21:20 Constitutional: Negative for fever, chills, and weight loss, Eyes: Negative for injury, la1 pain, redness, and discharge, ENT: Negative for injury, pain, and discharge, Neck: Negative for injury, pain, and swelling, Cardiovascular: Negative for chest pain, palpitations, and edema, Respiratory: Negative for shortness of breath, cough, wheezing, and pleuritic chest pain, Abdomen/GI: Negative for abdominal pain, nausea, vomiting, diarrhea, and constipation, : Negative for injury, bleeding, discharge, and swelling, MS/Extremity: Negative for injury and deformity, Skin: Negative for injury, rash, and discoloration, Neuro: Negative for headache, weakness, numbness, tingling, and seizure. 21:20 Back: Positive for pain at rest. Exam: 21:21 Constitutional: This is a well developed, well nourished patient who is awake, alert, la1 and in no acute distress. Eyes: Periorbital areas with no swelling, redness, or edema. ENT: Mucous membranes moist. Neck: Trachea midline, Chest/axilla: Normal chest wall appearance and motion. Nontender with no deformity. No lesions are appreciated. Cardiovascular: Regular rate and rhythm with a normal S1 and S2. No gallops, murmurs, or rubs. Normal PMI, no JVD. No pulse deficits. Respiratory: Lungs have equal breath sounds bilaterally, clear to auscultation No rales, rhonchi or wheezes noted. No increased work of breathing, no retractions or nasal flaring. Abdomen/GI: Soft, non-tender, with normal bowel sounds. No distension or tympany. No guarding or rebound. No evidence of tenderness throughout. Back: No spinal tenderness. No costovertebral tenderness. Full range of motion. MS/ Extremity: Pulses equal, no cyanosis. Neurovascular intact. Full, normal range of motion. 21:32 Neuro: Orientation: is normal, Mentation: is normal, Memory: is normal, Cerebellar la1 function: is grossly normal, Gait: is steady. Vital Signs: 20:05 BP 148 / 82; Pulse 87; Resp 18 S; Temp 98.1(O); Pulse Ox 100% on R/A; Weight 127.01 kg ca1 (R); Height 5 ft. 2 in. (157.48 cm); Pain 2/10; 20:05 Body Mass Index 51.21 (127.01 kg, 157.48 cm) ca1 MDM: 20:28 Patient medically screened. la1 21:30 Data reviewed: vital signs, nurses notes, I have discussed the patient's la1 presentation/case with the attending Emergency Department Physician; and as a result, I will discharge patient. Data interpreted: Pulse oximetry: on room air is 100 %. Interpretation: normal. Test interpretation: by ED physician or midlevel provider:. Counseling: I had a detailed discussion with the patient and/or guardian regarding: the historical points, exam findings, and any diagnostic results supporting the discharge/admit diagnosis, lab results, the need for outpatient follow up, a family practitioner, to return to the emergency department if symptoms worsen or persist or if there are any questions or concerns that arise at home. ED course: Pt reports intermittent, mild pain in lower back, denies any systemic symptoms, states pain is very mild and her doctor thinks it is menopause but she wanted to get checked out again, no abd tenderness, abd soft, no back tenderness. 21:32 ED course: informed pt of blood in urine and need for FU in that regard. [facility] 05/13 21:17 Order name: Urine Dipstick--Ancillary (enter results) [facility] 05/13 21:17 Order name: Urine --Ancillary (enter results) [facility] 05/13 20:43 Order name: Urine Dipstick-Ancillary (obtain specimen); Complete Time: 21:18 [facility] 05/13 20:43 Order name: Urine Test (obtain specimen); Complete Time: 21:18 [facility] 05/13 21:17 Order name: Urine Dipstick-Ancillary EDMS 05/13 21:17 Order name: Urine --Ancillary EDMS Administered Medications: No medications were administered Disposition: 05/14 08:10 Co-signature as Attending Physician, Steven Voss MD I agree with the assessment and tw4 plan of care. Disposition: 05/13/19 21:32 Discharged to Home. Impression: Low back pain. - Condition is Stable. - Discharge Instructions: Back Pain, Adult, Musculoskeletal Pain, Back Exercises, [id number]. - Prescriptions for Cyclobenzaprine 10 mg Oral Tablet - take 1 tablet by ORAL route every 8 hours As needed; 30 tablet. - Medication Reconciliation Form, Thank You Letter form. - Follow up: Private Physician; When: 2 - 3 days; Reason: Recheck today's complaints, Re-evaluation by your physician. - Problem is new. - Symptoms are unchanged. Signatures: Dispatcher [employer] EDMS [place], WARDROBE STYLIST-C WARDROBE STYLIST-Cla1 Diann Jarrett RN RN ea Wadley, Terrence, MD MD 4 Raysa Melchor RN RN ca1 Corrections: (The following items were deleted from the chart) 05/13 21:44 21:32 05/13/2019 21:32 Discharged to Home. Impression: Low back pain. Condition is ea Stable. Forms are Medication Reconciliation Form, Thank You Letter, Antibiotic Education, Prescription Opioid Use. Follow up: Private Physician; When: 2 - 3 days; Reason: Recheck today's complaints, Re-evaluation by your physician. Problem is new. Symptoms are unchanged. la1
[2019-05-13 21:57] LABS: Urine Blood 2+ (NEG); Urine Glucose NEGATIVE (NEG); Urine Protein NEGATIVE (NEG); Urine Specific Gravity 1.025 (1.005-1.030)
[2019-05-14 03:42] VITALS: BP 148/82; TEMP 98.1; O2SAT 100
== END 2019-05-13 21:44 | disposition home or self-care (01) ==
LOC: ER 19:18
DX: M54.5 Low back pain (principal)
CPT/HCPCS: 81003; 81025; 99282

== ENCOUNTER 2019-12-05 19:15 | Emergency (ER) | payer SELFPAY ==
[2019-12-05] MEDS ORDERED: cloNIDine HCL 0.1 MG TAB ONE (19:57)
--- NOTE | 2019-12-05 21:13 | ER ---
Nurse's Notes [facility] Name: Lauren Rinaldi Age: 49 yrs Sex: Female : 1970 Arrival Date: 12/05/2019 Time: 19:15 Bed 8 Private MD: Diagnosis: Dizziness and giddiness;Hypertension to be determined Presentation: 12/04 19:27 Chief complaint: Patient states: Dizziness that began about 45 mins ago, pt denies sg headache,denies N/V/D/FEVER/CHILLS, denies any changes with vision, denies any neurological symptoms at this time. Coronavirus screen: Client denies travel out of the [place] in the last 14 days. At this time, the client does not indicate any symptoms associated with coronavirus-19. Ebola Screen: Patient negative for fever greater than or equal to 101.5 degrees Fahrenheit, and additional compatible Ebola Virus Disease symptoms Patient denies exposure to infectious person. Patient denies travel to an Ebola-affected area in the 21 days before illness onset. No symptoms or risks identified at this time. Initial Sepsis Screen: Does the patient meet any 2 criteria? No. Patient's initial sepsis screen is negative. Does the patient have a suspected source of infection? No. Patient's initial sepsis screen is negative. Risk Assessment: Do you want to hurt yourself or someone else? Patient reports no desire to harm self or others. Onset of symptoms was December 05, 2019. Care prior to arrival: None. Transition of care: patient was not received from another setting of care. 19:27 Method Of Arrival: Wheelchair sg 19:27 Acuity: [place] 3 sg Historical: - Allergies: 19:30 No Known Allergies; sg - Home Meds: 19:30 None [Active]; sg - PMHx: 19:30 None; sg - PSHx: 19:30 Tubal ligation; sg - Immunization history:: Adult Immunizations up to date. - Social history:: Smoking status: Patient denies any tobacco usage or history of. Screenin:50 Abuse screen: Denies threats or abuse. Denies injuries from another. Nutritional lp1 screening: No deficits noted. Tuberculosis screening: No symptoms or risk factors identified. Fall Risk None identified. Assessment: 19:49 General: Appears in no apparent distress. Behavior is calm, cooperative, appropriate lp1 for age. Pain: Denies pain. Neuro: Level of Consciousness is awake, alert, obeys commands, Oriented to person, place, time, situation, Reports dizziness, since this morning. Cardiovascular: Patient's skin is warm and dry. Respiratory: Respiratory effort is even, unlabored. GI: No signs and/or symptoms were reported involving the gastrointestinal system. : No signs and/or symptoms were reported regarding the genitourinary system. EENT: No signs and/or symptoms were reported regarding the EENT system. Derm: Skin is pink, warm \T\ dry. Musculoskeletal: No deficits noted. 20:03 Reassessment: Patient and/or family updated on plan of care and expected duration. Pain jb4 level reassessed. Patient is alert, oriented x 3, equal unlabored respirations, skin warm/dry/pink. PT reports feeling better after medication administration. Reports dizziness has improved. Is ambulating with steady gait to the restroom. 20:30 Reassessment: Patient is alert, oriented x 3, equal unlabored respirations, skin lp1 warm/dry/pink. Patient states feeling better. Vital Signs: 19:27 BP 186 / 94; Pulse 89; Resp 20; Temp 97.1; Pulse Ox 97% on R/A; Weight 129.73 kg (R); sg Height 5 ft. 0 in. (152.40 cm) (R); Pain 0/10; 19:49 BP 176 / 95; Pulse 77; Resp 18; Pulse Ox 100% on R/A; lp1 21:00 BP 146 / 83; Pulse 80; Resp 18; Pulse Ox 99% on R/A; lp1 21:15 BP 129 / 86; Pulse 72; Resp 18; Pulse Ox 100% on R/A; lp1 19:27 Body Mass Index 55.85 (129.73 kg, 152.40 cm) sg ED Course: 19:15 Patient arrived in ED. cl3 19:27 Steven Voss MD is Attending Physician. tw4 19:29 Triage completed. sg 19:30 Yonas Hopper, RN is Primary Nurse. jb4 19:30 Arm band placed on. sg 19:50 Roselyn Angel, RN is Primary Nurse. lp1 19:50 Patient has correct armband on for positive identification. lp1 21:00 No provider procedures requiring assistance completed. Patient did not have IV access lp1 during this emergency room visit. 21:11 Gardenia Ha DO is Referral Physician. tw4 21:11 Pola Boykin MD is Referral Physician. tw4 21:12 Carito Szymanski MD is Referral Physician. tw4 Administered Medications: 19:49 Drug: cloNIDine 0.1 mg Route: PO; lp1 Outcome: 21:12 Discharge ordered by . tw4 21:25 Discharged to home ambulatory, with family. jb4 21:25 Condition: stable 21:25 Discharge instructions given to patient, Instructed on discharge instructions, follow up and referral plans. medication usage, Demonstrated understanding of instructions, follow-up care, medications, Prescriptions given X 1. 21:36 Patient left the ED. jb4 Signatures: Amarjit Bains, RN RN sg Roselyn Angel RN RN lp1 Yonas Hopper RN RN jb4 Steven Voss MD MD tw4 Mikaela Adam cl3
--- NOTE | 2019-12-05 21:13 | EDPHYS ---
Physician Documentation [facility] Name: Lauren Rinaldi Age: 49 yrs Sex: Female : 1970 Arrival Date: 12/05/2019 Time: 19:15 Bed 8 Private MD: ED Physician Steven Voss HPI: 12/05 00:25 This 49 yrs old Female presents to ER via Wheelchair with complaints of tw4 Dizziness. 00:25 The patient presents with dizziness. Onset: The symptoms/episode began/occurred today. tw4 Context: occurred at home, occurred while the patient was standing, just prior to the episode the patient experienced no apparent symptoms. Modifying factors: The symptoms are alleviated by nothing, the symptoms are aggravated by nothing. Associated signs and symptoms: The patient has no apparent associated signs or symptoms. Severity of symptoms: At their worst the symptoms were moderate in the emergency department the symptoms are unchanged. The patient has not experienced similar symptoms in the past. Historical: - Allergies: 12/04 19:30 No Known Allergies; sg - Home Meds: 19:30 None [Active]; sg - PMHx: 19:30 None; sg - PSHx: 19:30 Tubal ligation; sg - Immunization history:: Adult Immunizations up to date. - Social history:: Smoking status: Patient denies any tobacco usage or history of. ROS: 12/05 00:25 Constitutional: Negative for fever, chills, and weight loss, Eyes: Negative for injury, tw4 pain, redness, and discharge, Cardiovascular: Negative for chest pain, palpitations, and edema, Respiratory: Negative for shortness of breath, cough, wheezing, and pleuritic chest pain, Abdomen/GI: Negative for abdominal pain, nausea, vomiting, diarrhea, and constipation, Back: Negative for injury and pain, MS/Extremity: Negative for injury and deformity, Skin: Negative for injury, rash, and discoloration. Neuro: Positive for dizziness, Negative for altered mental status, gait disturbance, headache, hearing loss, loss of consciousness, numbness, seizure activity. Exam: 00:25 Constitutional: This is a well developed, well nourished patient who is awake, alert, tw4 and in no acute distress. Head/Face: Normocephalic, atraumatic. Chest/axilla: Normal chest wall appearance and motion. Nontender with no deformity. No lesions are appreciated. Cardiovascular: Regular rate and rhythm with a normal S1 and S2. No gallops, murmurs, or rubs. Normal PMI, no JVD. No pulse deficits. Respiratory: Lungs have equal breath sounds bilaterally, clear to auscultation and percussion. No rales, rhonchi or wheezes noted. No increased work of breathing, no retractions or nasal flaring. Abdomen/GI: Soft, non-tender, with normal bowel sounds. No distension or tympany. No guarding or rebound. No evidence of tenderness throughout. Back: No spinal tenderness. No costovertebral tenderness. Full range of motion. MS/ Extremity: Pulses equal, no cyanosis. Neurovascular intact. Full, normal range of motion. Neuro: Awake and alert, GCS 15, oriented to person, place, time, and situation. Cranial nerves II-XII grossly intact. Motor strength 5/5 in all extremities. Sensory grossly intact. Cerebellar exam normal. Normal gait. Vital Signs: 12/04 19:27 BP 186 / 94; Pulse 89; Resp 20; Temp 97.1; Pulse Ox 97% on R/A; Weight 129.73 kg (R); sg Height 5 ft. 0 in. (152.40 cm) (R); Pain 0/10; 19:49 BP 176 / 95; Pulse 77; Resp 18; Pulse Ox 100% on R/A; lp1 21:00 BP 146 / 83; Pulse 80; Resp 18; Pulse Ox 99% on R/A; lp1 21:15 BP 129 / 86; Pulse 72; Resp 18; Pulse Ox 100% on R/A; lp1 19:27 Body Mass Index 55.85 (129.73 kg, 152.40 cm) MDM: 19:34 Patient medically screened. tw4 12/05 00:28 Differential diagnosis: cardiac arrhythmia, CVA, generalized weakness. Data reviewed: tw4 vital signs, nurses notes. Data interpreted: Pulse oximetry: Interpretation: normal. Counseling: I had a detailed discussion with the patient and/or guardian regarding: the historical points, exam findings, and any diagnostic results supporting the discharge/admit diagnosis. Medication response: clonidine reduced the patient's elevated blood pressure to within acceptable limits. Response to treatment: the patient's symptoms have resolved after treatment, the patient's condition has returned to base line, the patient is now symptom free, and as a result, I will discharge patient. Special discussion: I discussed with the patient/guardian in detail that at this point there is no indication for admission to the hospital. It is understood, however, that if the symptoms persist or worsen the patient needs to return immediately for re-evaluation. Administered Medications: 12/04 19:49 Drug: cloNIDine 0.1 mg Route: PO; lp1 Disposition: 12/05/19 21:12 Discharged to Home. Impression: Dizziness and giddiness, Hypertension to be determined. - Condition is Stable. - Discharge Instructions: Dizziness, Hypertension. - Prescriptions for Norvasc 5 mg Oral Tablet - take 1 tablet by ORAL route once daily; 20 tablet. - Work release form, Medication Reconciliation Form, Thank You Letter, Antibiotic Education, Prescription Opioid Use form. - Follow up: Private Physician; When: Upon discharge from the Emergency Department; Reason: Recheck today's complaints, Continuance of care, Re-evaluation by your physician. Follow up: Gardenia Ha DO; When: 1 - 2 days; Reason: Recheck today's complaints, Continuance of care, Re-evaluation by your physician. Follow up: Pola Boykin MD; When: 1 - 2 days; Reason: Recheck today's complaints, Continuance of care, Re-evaluation by your physician. Follow up: Carito Szymanski MD; When: 1 - 2 days; Reason: Recheck today's complaints, Continuance of care, Re-evaluation by your physician. - Problem is new. - Symptoms have improved. Signatures: Amarjit Bains RN RN sg Roselyn Angel RN RN lp1 Yonas Hopper RN RN jb4 Steven Voss MD MD tw4 Corrections: (The following items were deleted from the chart) 21:36 21:12 12/05/2019 21:12 Discharged to Home. Impression: Dizziness and giddiness; jb4 Hypertension to be determined. Condition is Stable. Forms are Medication Reconciliation Form, Thank You Letter, Antibiotic Education, Prescription Opioid Use. Follow up: Private Physician; When: Upon discharge from the Emergency Department; Reason: Recheck today's complaints, Continuance of care, Re-evaluation by your physician. Follow up: Gardenia Ha; When: 1 - 2 days; Reason: Recheck today's complaints, Continuance of care, Re-evaluation by your physician. Follow up: Pola Boykin; When: 1 - 2 days; Reason: Recheck today's complaints, Continuance of care, Re-evaluation by your physician. Follow up: Carito Szymanski; When: 1 - 2 days; Reason: Recheck today's complaints, Continuance of care, Re-evaluation by your physician. Problem is new. Symptoms have improved. tw4
[2019-12-05 21:45] VITALS: TEMP 97.1
[2019-12-05 21:49] VITALS: BP 129/86; O2SAT 100
== END 2019-12-05 21:36 | disposition home or self-care (01) ==
LOC: ER 19:15
DX: I10 Essential (primary) hypertension (principal)
CPT/HCPCS: 99283

== ENCOUNTER 2020-08-12 12:35 | Observation (INO) | payer SELFPAY ==
--- NOTE | 2020-08-12 15:22 | RAD REPORT ---
EXAM DESCRIPTION: RAD - Chest Single View - 08/12/2020 3:14 pm CLINICAL HISTORY: CHEST PAIN Chest pain. COMPARISON: Chest Pa And Lat (2 Views) dated 08/28/2017; CHEST SINGLE VIEW dated 11/22/2011 FINDINGS: Portable technique limits examination quality. The lungs are grossly clear. The heart is normal in size. No displaced fractures. IMPRESSION: No acute intrathoracic process suspected.
[2020-08-12 15:32] LABS: Absolute Lymphocytes (CBC) 1.8 K/uL (0.7-4.9); Basophils % 0.4 % (0-1.3); Hematocrit 45.1 % (36.0-45.0); Lymphocytes % 13.5 % (15.3-44.8); MPV 7.8 fL (7.6-11.3); RBC Red Blood Cell Count 5.14 M/uL (3.86-4.86)
[2020-08-12 15:45] LABS: Protime INR 0.96
[2020-08-12 15:57] LABS: ALT/SGPT 23 U/L (12-78); AST/SGOT 15 U/L (15-37); Albumin 4.3 g/dL (3.4-5.0); Alkaline Phosphatase 74 U/L (45-117); BUN Blood Urea Nitrogen 13 mg/dL (7-18); Bicarbonate 27 mmol/L (21-32); Bilirubin Direct 0.1 mg/dL (0-0.2); Bilirubin Total 0.6 mg/dL (0.2-1.0); Glucose Level 88 mg/dL (74-106); Magnesium 2.1 mg/dL (1.8-2.4); NT PRO-BNP 50 pg/mL (<125); Potassium 3.7 mmol/L (3.5-5.1); Sodium Level 137 mmol/L (136-145); Troponin (Emerg Dept Use Only) < 0.02 ng/mL (0.0-0.045)
--- NOTE | 2020-08-12 16:37 | RAD REPORT ---
EXAM DESCRIPTION: CT - Chest For Pe Angio - 08/12/2020 4:29 pm CLINICAL HISTORY: Chest pain. CHEST PAIN COMPARISON: CTANGIO CHEST FOR PE dated 11/22/2011 TECHNIQUE: CT angiogram of the pulmonary arteries was performed with MIP. All CT scans are performed using dose optimization technique as appropriate and may include automated exposure control or mA/KV adjustment according to patient size. FINDINGS: No evidence of pulmonary thromboembolism. No acute aortic finding demonstrated. Aberrant right subclavian artery is noted. The lungs are clear. No significant pericardial or pleural fluid. No concerning bony finding. IMPRESSION: No evidence of pulmonary thromboembolism.
--- NOTE | 2020-08-12 17:39 | EDPHYS ---
Physician Documentation [facility] Name: Lauren Rinaldi Age: 50 yrs Sex: Female : 1970 Arrival Date: 08/12/2020 Time: 12:37 Bed 16 Private MD: ED Physician Yunior Amaro HPI: 08/12 14:59 This 50 yrs old Female presents to ER via Ambulatory with complaints of Chest jmm Pain. 14:59 The patient or guardian reports chest pain that is located primarily in the substernal jmm area. Onset: gradually, 3 hour(s) ago. The pain does not radiate. Associated signs and symptoms: Pertinent negatives: abdominal pain, dizziness, headache, lower extremity pain, lower extremity swelling, shortness of breath. The chest pain is described as aching. Duration: The patient or guardian reports a single episode, that is now resolved. Modifying factors: The symptoms are alleviated by nothing. the symptoms are aggravated by nothing. The patient has not experienced similar symptoms in the past. Historical: - Allergies: 12:54 No Known Allergies; hb - Home Meds: 12:54 lisinopril 5 mg Oral tab 1 tab once daily [Active]; hb - PMHx: 12:54 Hypertension; hb - PSHx: 12:54 Tubal ligation; hb - Immunization history:: Adult Immunizations unknown. - Social history:: Smoking status: Patient denies any tobacco usage or history of. Patient/guardian denies using alcohol, street drugs, IV drugs. ROS: 14:59 Constitutional: Negative for fever, chills, and weight loss, Respiratory: Negative for jmm shortness of breath, cough, wheezing, and pleuritic chest pain. 14:59 Cardiovascular: Positive for chest pain. 14:59 All other systems are negative. Exam: 14:59 Constitutional: This is a well developed, well nourished patient who is awake, alert, jmm and in no acute distress. Head/Face: atraumatic. Eyes: EOMI, no conjunctival erythema appreciated ENT: Moist Mucus Membranes Neck: Trachea midline, Supple Chest/axilla: Normal chest wall appearance and motion. Cardiovascular: Regular rate and rhythm. No edema appreciated Respiratory: Normal respirations, no respiratory distress appreciated Abdomen/GI: Non distended, soft Back: Normal ROM Skin: General appearance color normal MS/ Extremity: Moves all extremities, no obvious deformities appreciated, no edema noted to the lower extremities Neuro: Awake and alert, normal gait Psych: Behavior is normal, Mood is normal, Patient is cooperative and pleasant Vital Signs: 12:52 BP 182 / 106; Pulse 84; Resp 16; Temp 97.8; Pulse Ox 100% ; Pain 7/10; hb 14:30 Pulse 90; Resp 19; Pulse Ox 99% ; bp 16:30 BP 169 / 100; Pulse 95; Resp 17; Pulse Ox 98% ; bp 17:25 BP 177 / 103; Pulse 97; Resp 17; Pulse Ox 98% ; bp 18:30 BP 171 / 107; Pulse 87; Resp 16; Pulse Ox 96% ; bp 19:00 BP 160 / 100; Pulse 84; Resp 16; Pulse Ox 96% ; sf 19:30 BP 151 / 82; Pulse 83; Resp 16; Pulse Ox 97% ; sf 20:00 BP 134 / 85; Pulse 84; Resp 16; Pulse Ox 96% ; sf 20:30 BP 141 / 88; Pulse 83; Resp 16; Pulse Ox 98% ; sf MDM: 14:35 Patient medically screened. alexandria 17:37 The patient was given aspirin in the Emergency Department. Data reviewed: vital signs, [facility] nurses notes, lab test result(s), EKG, radiologic studies, plain films. ED course: Pain in relieved in the ED. Heart Score = 4. I discussed the patient with Dr. Rincon whom accepted the patient for admission. . 08/12 14:51 Order name: Basic Metabolic Panel; Complete Time: 16:00 [facility] 08/12 14:51 Order name: CBC with Diff; Complete Time: 15:41 [facility] 08/12 14:51 Order name: LFT's; Complete Time: 16:00 [facility] 08/12 14:51 Order name: Magnesium; Complete Time: 16:00 [facility] 08/12 14:51 Order name: NT PRO-BNP; Complete Time: 16:00 [facility] 08/12 14:51 Order name: PT-INR; Complete Time: 15:55 [facility] 08/12 14:51 Order name: Troponin (emerg Dept Use Only); Complete Time: 16:00 [facility] 08/12 14:51 Order name: D-Dimer; Complete Time: 15:55 [facility] 08/12 17:55 Order name: CKMB Creatine Kinase MB [facility] 08/12 17:55 Order name: Lipid Profile [facility] 08/12 17:55 Order name: Troponin I [facility] 08/12 18:45 Order name: COVID-19 : Document "Date of Symptom Onset" if Symptomatic. tt3 08/12 20:06 Order name: CORONAVIRUS [facility] 08/12 20:56 Order name: SARS-COV-2 RT PCR; Complete Time: 20:58 [facility] 08/12 12:54 Order name: EKG; Complete Time: 12:55 hb 08/12 12:54 Order name: EKG - Nurse/Tech; Complete Time: 12:54 08/12 14:51 Order name: XRAY Chest (1 view); Complete Time: 15:24 [facility] 08/12 14:51 Order name: Cardiac monitoring; Complete Time: 15:26 [facility] 08/12 14:51 Order name: IV Saline Lock; Complete Time: 15:26 [facility] 08/12 14:51 Order name: Labs collected and sent; Complete Time: 15:27 [facility] 08/12 14:51 Order name: O2 Per Protocol; Complete Time: 15:27 [facility] 08/12 14:51 Order name: O2 Sat Monitoring; Complete Time: 15:27 [facility] 08/12 15:51 Order name: CT Chest For PE Angio; Complete Time: 16:38 [facility] 08/12 17:55 Order name: Heart Healthy [facility] Administered Medications: 17:45 Drug: Aspirin Chewable Tablet 324 mg Route: PO; bp 19:02 Follow up: Response: No adverse reaction bp Disposition: 08/12/20 17:39 Hospitalization ordered by Leandro Rincon for Observation. Preliminary diagnosis is Chest pain, unspecified. - Bed requested for Telemetry/MedSurg (observation). - Status is Observation. sf - Condition is Stable. - Problem is new. - Symptoms have improved. Addendum: 08/14/2020 08:12 Co-signature as Attending Physician, Yunior Amaro MD I agree with the assessment and c hirsch plan of care. Signatures: Dispatcher [employer] [facility] Angela Gore RN RN mw Anderson, Corey, MD MD cha Mickail, Joel, PA PA jmm Baxter, Heather, RN RN Ruddy Claros RN RN bp Mcintosh, Amarjit, RN RN sf Corrections: (The following items were deleted from the chart) 08/13 00:33 08/12 17:39 Hospitalization Ordered by Leandro Rincon MD for Observation. Preliminary mw diagnosis is Chest pain, unspecified. Bed requested for Telemetry/MedSurg (observation). Status is Observation. Condition is Stable. Problem is new. Symptoms have improved. valerie 08/13 01:25 00:33 08/12/2020 17:39 Hospitalization Ordered by Leandro Rincon MD for Observation. sf Preliminary diagnosis is Chest pain, unspecified. Bed requested for Telemetry/MedSurg (observation). Status is Observation. Condition is Stable. Problem is new. Symptoms have improved. mw
--- NOTE | 2020-08-12 17:39 | ER ---
Nurse's Notes [facility] Name: Lauren Rinaldi Age: 50 yrs Sex: Female : 1970 Arrival Date: 08/12/2020 Time: 12:37 Bed 16 Private MD: Diagnosis: Chest pain, unspecified Presentation: 08/12 12:52 Chief complaint: Left sided chest pain x 2 hours. Denies SOB/nausea. Coronavirus hb screen: At this time, the client does not indicate any symptoms associated with coronavirus-19. Ebola Screen: No symptoms or risks identified at this time. Initial Sepsis Screen: Does the patient meet any 2 criteria? No. Patient's initial sepsis screen is negative. Does the patient have a suspected source of infection? No. Patient's initial sepsis screen is negative. Risk Assessment: Do you want to hurt yourself or someone else? Patient reports no desire to harm self or others. Onset of symptoms was August 12, 2020. 12:52 Method Of Arrival: Ambulatory hb 12:52 Acuity: [place] 3 hb Triage Assessment: 14:30 General: Appears in no apparent distress. comfortable, obese, Behavior is cooperative, bp appropriate for age, anxious. Pain: Complains of pain in chest. EENT: No deficits noted. Neuro: No deficits noted. Cardiovascular: Rhythm is sinus rhythm. Respiratory: No deficits noted. GI: No signs and/or symptoms were reported involving the gastrointestinal system. : No signs and/or symptoms were reported regarding the genitourinary system. Derm: No deficits noted. Musculoskeletal: No deficits noted. Historical: - Allergies: 12:54 No Known Allergies; hb - Home Meds: 12:54 lisinopril 5 mg Oral tab 1 tab once daily [Active]; hb - PMHx: 12:54 Hypertension; hb - PSHx: 12:54 Tubal ligation; hb - Immunization history:: Adult Immunizations unknown. - Social history:: Smoking status: Patient denies any tobacco usage or history of. Patient/guardian denies using alcohol, street drugs, IV drugs. Screenin:28 Abuse screen: Denies threats or abuse. Denies injuries from another. Nutritional bp screening: No deficits noted. Tuberculosis screening: No symptoms or risk factors identified. Fall Risk None identified. Assessment: 14:30 General: SEE TRIAGE NOTE. bp 16:30 Reassessment: No changes from previously documented assessment. Patient and/or family bp updated on plan of care and expected duration. Pain level reassessed. Patient is alert, oriented x 3, equal unlabored respirations, skin warm/dry/pink. 17:30 Reassessment: No changes from previously documented assessment. Patient and/or family bp updated on plan of care and expected duration. Pain level reassessed. Patient is alert, oriented x 3, equal unlabored respirations, skin warm/dry/pink. PT RETURNED FROM CT. 18:30 Reassessment: Patient appears in no apparent distress at this time. Patient and/or bp family updated on plan of care and expected duration. Pain level reassessed. Patient is alert, oriented x 3, equal unlabored respirations, skin warm/dry/pink. ADMIT IN PROCESS. 19:00 General: Appears in no apparent distress. comfortable, Behavior is calm, cooperative. sf Pain: Complains of pain in chest Pain radiates to left arm. Neuro: No deficits noted. Cardiovascular: Reports chest pain, Denies diaphoresis, lightheadedness, nausea, shortness of breath, Patient's skin is warm and dry. Rhythm is sinus rhythm. Respiratory: No deficits noted. GI: No deficits noted. : No deficits noted. Derm: No deficits noted. Musculoskeletal: No deficits noted. 20:51 Reassessment: Patient appears in no apparent distress at this time. No changes from sf previously documented assessment. Patient and/or family updated on plan of care and expected duration. Pain level reassessed. Patient is alert, oriented x 3, equal unlabored respirations, skin warm/dry/pink. Vital Signs: 12:52 BP 182 / 106; Pulse 84; Resp 16; Temp 97.8; Pulse Ox 100% ; Pain 7/10; hb 14:30 Pulse 90; Resp 19; Pulse Ox 99% ; bp 16:30 BP 169 / 100; Pulse 95; Resp 17; Pulse Ox 98% ; bp 17:25 BP 177 / 103; Pulse 97; Resp 17; Pulse Ox 98% ; bp 18:30 BP 171 / 107; Pulse 87; Resp 16; Pulse Ox 96% ; bp 19:00 BP 160 / 100; Pulse 84; Resp 16; Pulse Ox 96% ; sf 19:30 BP 151 / 82; Pulse 83; Resp 16; Pulse Ox 97% ; sf 20:00 BP 134 / 85; Pulse 84; Resp 16; Pulse Ox 96% ; sf 20:30 BP 141 / 88; Pulse 83; Resp 16; Pulse Ox 98% ; sf Vitals: 20:51 Cardiac Rhythm Assessment Sinus rhythm. sf ED Course: 12:37 Patient arrived in ED. ds1 12:53 Triage completed. hb 12:54 Arm band placed on. hb 14:29 Alex Renteria PA is PHCP. [facility] 14:29 Yunior Amaro MD is Attending Physician. [facility] 14:30 Ruddy Claros, RN is Primary Nurse. bp 15:14 XRAY Chest (1 view) In Process Unspecified. EDMS 15:20 Inserted saline lock: 20 gauge in left forearm, using aseptic technique. Blood bp collected. 15:28 Patient has correct armband on for positive identification. Bed in low position. Call bp light in reach. Side rails up X2. lining parts sewer on. Pulse ox on. NIBP on. 16:29 CT Chest For PE Angio In Process Unspecified. EDMS 17:38 Leandro Rincon MD is Hospitalizing Provider. [facility] 19:15 COVID swab sent to lab. sf 20:51 Primary Nurse role handed off by Ruddy Claros, DERICK sf 20:51 Amarjit Mcintosh, DERICK is Primary Nurse. sf 20:53 COVID-19 : Document "Date of Symptom Onset" if Symptomatic. Sent. sf 20:53 CORONAVIRUS Sent. sf 23:00 No provider procedures requiring assistance completed. Patient admitted, IV remains in sf place. Patient maintains SpO2 saturation greater than 95% on room air. Administered Medications: 17:45 Drug: Aspirin Chewable Tablet 324 mg Route: PO; bp 19:02 Follow up: Response: No adverse reaction bp Outcome: 17:39 Decision to Hospitalize by Provider. [facility] 23:00 Admitted to ER Hold. [facility]. sf 23:00 Condition: stable 23:00 Instructed on the need for admit. 08/13 01:25 Patient left the ED. sf Signatures: Dispatcher [employer] EDMS Alex Renteria PA PA Abeba Choi ds1 Erin Simon RN RN Ruddy Claros, DERICK RN mAarjit Mcintosh, DERICK RN sf Corrections: (The following items were deleted from the chart) 08/12 17:31 17:25 Pulse 97bpm; Resp 17bpm; Pulse Ox 98%; bp bp
[2020-08-12] MEDS ORDERED: ONDANSETRON 4 MG/2 ML VIAL IV PRN (17:50)
[2020-08-12] MEDS ORDERED: ACETAMINOPHEN 500 MG TAB PO PRN (17:50)
--- NOTE | 2020-08-12 18:02 | P.HP ---
Certification for Inpatient Patient admitted to: Observation With expected LOS: <2 Midnights Practitioner: I am a practitioner with admitting privileges, knowledge of patient current condition, hospital course, and medical plan of care. Services: Services provided to patient in accordance with Admission requirements found in Title 42 Section 412.3 of the Code of Federal Regulations Patient History Date of Service: 08/12/20 Reason for admission: chest pain History of Present Illness: 50 yrs old Female with past medical history of hypertension on lisinopril came to the ER with left-sided chest pain which has been going on for 1 day duration. Left-sided location associated with no radiation intermittent, pressure like not associated with any diaphoresis or nausea vomiting. denies any shortness of breath no fever or chills no nausea vomiting or diarrhea sick contacts At the time of interview patient was noted to have accelerated hypertension and had a initial workup for chest pain was negative so far and is admitted for ACS rule out Allergies No Known Allergies Allergy (Unverified 11/22/11 09:42) Review of Systems 10-point ROS is otherwise unremarkable Physical Examination - Vital Signs Temperature: 98.2 F Blood Pressure: 178/92 Pulse: 76 Respirations: 18 - Physical Exam General: Alert, In no apparent distress, Oriented x3, Obese HEENT: Atraumatic, Normocephalic Neck: Supple, 2+ carotid pulse no bruit Respiratory: Clear to auscultation bilaterally, Normal air movement Cardiovascular: Regular rate/rhythm, Normal S1 S2 Capillary refill: <2 Seconds Gastrointestinal: Soft and benign, Non-distended Musculoskeletal: No clubbing, No swelling Integumentary: No rashes, No breakdown Neurological: Normal speech, Normal strength at 5/5 x4 extr Lymphatics: No axilla or inguinal lymphadenopathy - Studies Laboratory Data (last 24 hrs) 08/12/20 15:20: PT 11.0, INR 0.96 08/12/20 15:20: WBC 13.30 H, Hgb 14.9, Hct 45.1 H, Plt Count 320 08/12/20 15:20: Sodium 137, Potassium 3.7, BUN 13, Creatinine 0.72, Glucose 88, Magnesium 2.1, Total Bilirubin 0.6, AST 15, ALT 23, Alkaline Phosphatase 74 Assessment and Plan - Problems (Diagnosis) (1) Chest pain Current Visit: Yes Status: Acute Plan: chest pain to rule out ACS Trend cardiac enzymes start on aspirin statin monitor under telemetry cardiology consulted CT is negative for PE Pain control (2) Accelerated hypertension Current Visit: Yes Status: Acute Plan: continue home medications and titrate as needed add on metoprolol Hydralazine p.r.n monitor closely under telemetry (3) Obesity Current Visit: Yes Status: Chronic Plan: Advised lifestyle modification Discharge Plan: Home Plan to discharge in: 24 Hours - Advance Directives Does patient have a Living Will: No Does patient have a Durable POA for Healthcare: No Time Spent Managing Pts Care (In Minutes): 43
[2020-08-12] MEDS ORDERED: MORPHINE 2 MG/ML SYR IV PRN (18:15)
[2020-08-12] MEDS ORDERED: ASPIRIN 81 MG CHEWABLE TABLET ONE (18:26)
[2020-08-12] MEDS ORDERED: ATORVASTATIN 40 MG TAB PO SCH (21:00)
[2020-08-12 22:49] VITALS: O2SAT 97
[2020-08-12 22:52] VITALS: BMI 51.4
[2020-08-12] MEDS: ENOXAPARIN 40 MG/0.4 ML SQ SCH (23:00)
[2020-08-12] MEDS: METOPROLOL TAR 50 MG TAB PO SCH (23:00)
[2020-08-12] MEDS ORDERED: ATORVASTATIN 20 MG TAB ONE (23:19)
[2020-08-12] MEDS ORDERED: METOPROLOL TAR 50 MG TAB ONE (23:19)
[2020-08-12] MEDS ORDERED: ENOXAPARIN 40 MG/0.4 ML SQ ONE (23:19)
[2020-08-13 06:26] LABS: Absolute Lymphocytes (CBC) 2.6 K/uL (0.7-4.9); Basophils % 0.5 % (0-1.3); Lymphocytes % 27.9 % (15.3-44.8); MPV 7.5 fL (7.6-11.3); RBC Red Blood Cell Count 4.71 M/uL (3.86-4.86)
[2020-08-13 06:43] LABS: ALT/SGPT 22 U/L (12-78); AST/SGOT 14 U/L (15-37); Albumin 3.6 g/dL (3.4-5.0); Alkaline Phosphatase 60 U/L (45-117); BUN Blood Urea Nitrogen 11 mg/dL (7-18); Bicarbonate 30 mmol/L (21-32); Bilirubin Total 0.8 mg/dL (0.2-1.0); CKMB Creatine Kinase MB 1.4 ng/mL (0.3-3.6); Glucose Level 95 mg/dL (74-106); HDL Cholesterol 35 mg/dL (40-60); LDL Cholesterol, Calculated 121 (<130); Protein, Total 7.6 g/dL (6.4-8.2); Sodium Level 138 mmol/L (136-145); Troponin I < 0.02 ng/mL (0.0-0.045)
--- NOTE | 2020-08-13 07:58 | EKG ---
Test Date: 2020-08-12 Test Time: 12:50:01 Ticket Sorter: HB MEASUREMENT RESULTS: Intervals: Rate: 83 MN: 114 QRSD: 86 QT: 392 QTc: 460 [place]: P: 13 MN: 114 QRS: -16 T: 20 INTERPRETIVE STATEMENTS: Normal sinus rhythm Minimal voltage criteria for LVH, may be normal variant Borderline ECG Compared to ECG 11/22/2011 10:54:51 No significant changes Electronically Signed On 08-13-20 07:56:37 CDT by Aden Giordano
[2020-08-13] MEDS ORDERED: ASPIRIN EC 81 MG TAB PO SCH (09:00)
[2020-08-13] MEDS: ENOXAPARIN 40 MG/0.4 ML SQ SCH (09:00)
[2020-08-13 09:12] VITALS: BP 134/87
[2020-08-13] MEDS: METOPROLOL TAR 50 MG TAB PO SCH (09:12)
[2020-08-13 10:00] VITALS: TEMP 97.7
--- NOTE | 2020-08-13 12:59 | CON ---
Date of Consultation: 08/13/2020 Reason For Consultation: Chest pain. History Of Present Illness: Ms. Rinaldi is a 50-year-old woman with history of hypertension, border line hypertriglyceridemia. She came in with a soreness type of chest pain over the left anterior [address] and left shoulder that felt like an ache or soreness. Had some nausea but no vomiting. No diapho resis. No shortness of breath. Denied any PND, orthopnea, pedal edema, palpitation, or syncope. De nied any fever or chills. She was hypertensive when she came to the emergency room at 178/92. Past Medical History: As stated above. Allergies: NONE. Review of Systems: Negative. Social History: Negative for tobacco. Family History: Negative for heart disease. Medications: At home include lisinopril. Physical Examination: Vital Signs: Blood pressure was 178/92 initially, after metoprolol and went down to 125/61. HEENT: Negative. Neck: Supple with no bruit. Chest: Clear to auscultation and percussion. Cardiac: Revealed a regular rhythm and rate. No murmurs, gallops, or rubs. Abdomen: Benign. Extremities: Revealed no clubbing, cyanosis, or edema. Diagnostic Data: Included a normal EKG, normal chest x-ray, normal CT angiogram. Her D-dimer was 90 8. [place] [address]. Troponins were negative. Impression And Plan: 1.Atypical chest pain. 2.Hypertension. 3.Obesity. 4.Dyslipidemia. I think the patient is to continue on lisinopril. We need to add beta-jordy to her regimen. I thi nk she needs to have an outpatient echocardiogram and a stress test, but I am comfortable with her go ing home today and I will make arrangements for her outpatient testing in the office as an outpatient . SARAH/OSVALDO Voice ID: [id number] Report ID: [id number]
--- NOTE | 2020-08-29 04:52 | P.DS ---
Discharge Date: 08/13/20 Disposition: ROUTINE DISCHARGE Discharge Condition: GOOD Reason for Admission: chest pain Brief History of Present Illness: Patient is a 50 yrs old Female with past medical history of hypertension on lisinopril came to the ER with left-sided chest pain which has been going on for 1 day duration. Left-sided location associated with no radiation intermittent, pressure like not associated with any diaphoresis or nausea vomiting. Patient denies any shortness of breath, no fever, or chills, no nausea vomiting or diarrhea. Patient denies any sick contact. At the time of interview patient was noted to have accelerated hypertension and had a initial workup for chest pain was negative so far and is admitted for ACS rule out. Cardiology will be consulted and patient be admitted to be ruled out for acute coronary syndrome. Hospital Course: Patient workup was unremarkable. Troponins were negative. Blood pressure was stable. At this time, patient is stable for discharge home with outpatient follow with Cardiology in 1-2 weeks. Vital Signs/Physical Exam: Temp Pulse Resp BP Pulse Ox 97.7 F 77 16 134/87 97 08/13/20 08:00 08/13/20 09:12 08/13/20 08:00 08/13/20 09:12 08/13/20 08:00 General: Alert, In no apparent distress, Oriented x3 Laboratory Data at Discharge: WBC 9.40 K/uL (4.3-10.9) D 08/13/20 06:06 Hgb 13.9 g/dL (12.0-15.0) 08/13/20 06:06 Hct 41.0 % (36.0-45.0) 08/13/20 06:06 Plt Count 294 K/uL (152-406) 08/13/20 06:06 PT 11.0 SECONDS (9.5-12.5) 08/12/20 15:20 INR 0.96 08/12/20 15:20 Sodium 138 mmol/L (136-145) 08/13/20 06:06 Potassium 4.0 mmol/L (3.5-5.1) 08/13/20 06:06 BUN 11 mg/dL (7-18) 08/13/20 06:06 Creatinine 0.66 mg/dL (0.55-1.3) 08/13/20 06:06 Glucose 95 mg/dL (74-106) 08/13/20 06:06 Magnesium 2.1 mg/dL (1.8-2.4) 08/12/20 15:20 Total Bilirubin 0.8 mg/dL (0.2-1.0) 08/13/20 06:06 AST 14 U/L (15-37) L 08/13/20 06:06 ALT 22 U/L (12-78) 08/13/20 06:06 Alkaline Phosphatase 60 U/L (45-117) 08/13/20 06:06 Troponin I Cancelled 08/13/20 21:00 Triglycerides 150 mg/dL (<150) 08/13/20 06:06 Cholesterol 186 mg/dL (<200) 08/13/20 06:06 HDL Cholesterol 35 mg/dL (40-60) L 08/13/20 06:06 Cholesterol/HDL Ratio 5.31 08/13/20 06:06 Home Medications: Amlodipine [Norvasc*] 2.5 mg PO DAILY 08/13/20 Aspirin [Aspirin EC 81 MG] 81 mg PO DAILY 30 Days #30 tablet. 08/13/20 Atorvastatin Calcium [Lipitor] 40 mg PO BEDTIME 30 Days #30 tab 08/13/20 Metoprolol Tartrate [Lopressor] 50 mg PO BID 30 Days #60 tablet 08/13/20 New Medications: Aspirin [Aspirin EC 81 MG] 81 mg PO DAILY 30 Days #30 tablet. Atorvastatin Calcium [Lipitor] 40 mg PO BEDTIME 30 Days #30 tab Metoprolol Tartrate [Lopressor] 50 mg PO BID 30 Days #60 tablet Physician Discharge Instructions: PROBLEM: Chest Pain GOAL: Clear understanding of disease process INSTRUCTIONS: Diet: heart healthy Activity: Fall precautions OK TO DC IV AND DC HOME FOLLOW-UP WITH PRIMARY CARE PROVIDER IN 1-2 WEEKS FOLLOW-UP WITH CARDIOLOGY IN 1-2 WEEKS RETURN TO THE ER IF symptoms worsen CALL or TEXT DR. DE LA VEGA AT [phone] IF ANY QUESTIONS REGARDING HOSPITAL STAY. PLEASE CALL THE FLOOR AT [phone] IF ANY MEDICATION OR NURSING QUESTIONS. per Dr. Giordano-start metoprolol tartrate 50mg BID. Diet: AHA Activity: Fall precautions Followup: Aden Giordano MD [ACTIVE - CAN ADMIT] - 1-2 Weeks (Call to make an appointment. ) OOT,OOT [Primary Care Provider] - Time spent managing pt's care (in minutes): 35
== END 2020-08-13 12:55 | disposition home or self-care (01) ==
LOC: ER 12:35 → ERHOLD 17:51 → 2ND 08-13 01:02
PROVIDERS: ADMIT Family Medicine; ATTEND Hospitalist
DX: R07.89 Other chest pain (principal); I10 Essential (primary) hypertension; E78.5 Hyperlipidemia, unspecified; E66.9 Obesity, unspecified; Z68.43 Body mass index [BMI] 50.0-59.9, adult; Z79.899 Other long term (current) drug therapy; Z20.822 Contact with and (suspected) exposure to COVID-19
CPT/HCPCS: 36415; 71045; 71275; 80048; 80053; 80061; 80076; 82553; 83735; 83880; 84484; 85025; 85379; 85610; 93005; 94760; 99285; G0378; J1650; Q9967; U0003

== ENCOUNTER 2020-12-21 17:25 | Emergency (ER) | payer SELFPAY ==
--- OUTSIDE RECORDS SUMMARY | 2020-12-21 17:28 | XMS REPORT | Continuity of Care Document ---
:1970 Author Organization [facility] t Address [address] [place] [address] [address]. Fern[address] [place] [address] Care Team Providers Name Role Phone Unavailable Unavailable Unavailable Problems This patient has no known problems. Allergies, Adverse Reactions, Alerts This patient has no known allergies or adverse reactions. Medications This patient has no known medications. Procedures This patient has no known procedures. Results This patient has no known results.
[2020-12-21 18:19] LABS: Protime INR 1.04
[2020-12-21 18:24] LABS: Lymphocytes % 30.1 % (15.3-44.8); MPV 7.2 fL (7.6-11.3); RBC Red Blood Cell Count 4.77 M/uL (3.86-4.86)
[2020-12-21] MEDS ORDERED: ONDANSETRON 4 MG/2 ML VIAL ONE (18:24)
[2020-12-21] MEDS ORDERED: NA CHLORIDE 0.9% 1,000 ML ONE (18:25)
[2020-12-21 18:37] LABS: ALT/SGPT 58 U/L (12-78); AST/SGOT 35 U/L (15-37); Albumin 3.6 g/dL (3.4-5.0); Alkaline Phosphatase 59 U/L (45-117); BUN Blood Urea Nitrogen 6 mg/dL (7-18); Bicarbonate 28 mmol/L (21-32); Bilirubin Direct 0.2 mg/dL (0-0.2); Bilirubin Total 0.5 mg/dL (0.2-1.0); Glucose Level 126 mg/dL (74-106); Magnesium 1.9 mg/dL (1.8-2.4); NT PRO-BNP 113 pg/mL (<125); Potassium 3.3 mmol/L (3.5-5.1); Protein, Total 7.9 g/dL (6.4-8.2); Sodium Level 142 mmol/L (136-145); Troponin (Emerg Dept Use Only) < 0.02 ng/mL (0.0-0.045)
--- NOTE | 2020-12-21 18:46 | RAD REPORT ---
EXAM DESCRIPTION: CT - Head Brain Wo Cont - 12/21/2020 6:20 pm CLINICAL HISTORY: DIZZINESS COMPARISON: HEAD BRAIN W O CONTRAST dated 03/06/2010 TECHNIQUE: Axial 5 mm thick images of the head were obtained without IV contrast. All CT scans are performed using dose optimization technique as appropriate and may include automated exposure control or mA/KV adjustment according to patient size. FINDINGS: No intracranial hemorrhage, mass, edema or shift of mid-line structures. No acute infarcti on changes seen. No abnormal extra-axial fluid collections. Ventricles are normal. Mastoid air cells are clear. Mucosal thickening and small air-fluid level seen right maxillary sinus. No acute bony findings. IMPRESSION: No intracranial abnormality identified. No intracranial changes from remote 2010 study. Mucosal thickening and air-fluid level in the right maxillary sinus.
--- NOTE | 2020-12-21 19:15 | RAD REPORT ---
EXAM DESCRIPTION: RAD - Chest Single View - 12/21/2020 6:37 pm CLINICAL HISTORY: weakness, fatigue COMPARISON: Portable August 12 TECHNIQUE: AP portable chest image was obtained 12/21/2020 6:37 pm . FINDINGS: Exam is limited by shallow inspiration, under penetrated portable technique and large body habitus. The overlying breast soft tissues limit lower lung field evaluation. No large consolidation or mass identified. Small patchy infiltrates are certainly possible. Failure a nd volume overload are not suspected. Heart and vasculature are normal. No measurable pleural effusion and no pneumothorax. No acute bony abnormality seen. No acute aortic findings suspected. IMPRESSION: Limited portable study shows no large mass or consolidation. Small patchy infiltrates are certainly possible.
--- NOTE | 2020-12-21 20:23 | ER ---
Nurse's Notes [facility] Name: Lauren Rinaldi Age: 50 yrs Sex: Female : 1970 Arrival Date: 12/21/2020 Time: 17:27 Bed 4 Private MD: Diagnosis: Diarrhea, unspecified Presentation: 12/21 17:28 Chief complaint: Patient states: dizziness started yesterday. Coronavirus screen: sv Vaccine status: Patient reports being unvaccinated. At this time, the client does not indicate any symptoms associated with coronavirus-19. Ebola Screen: No symptoms or risks identified at this time. Risk Assessment: Do you want to hurt yourself or someone else? Patient reports no desire to harm self or others. Onset of symptoms was December 20, 2020. 17:28 Method Of Arrival: Ambulatory sv 17:28 Acuity: CLAYTON 3 sv 17:29 Initial Sepsis Screen: Does the patient meet any 2 criteria? HR > 90 bpm. No. Patient's sv initial sepsis screen is negative. Does the patient have a suspected source of infection? No. Patient's initial sepsis screen is negative. Triage Assessment: 17:30 General: Appears in no apparent distress. comfortable, Behavior is calm, cooperative, sv appropriate for age. Pain: Denies pain. Neuro: Level of Consciousness is awake, alert, obeys commands, Gait is steady, Reports dizziness. Respiratory: Respiratory effort is even, unlabored. Historical: - Allergies: 17:29 No Known Allergies; sv - PMHx: 17:29 Hypertension; sv - Immunization history:: Adult Immunizations up to date. - Social history:: Smoking status: Patient denies any tobacco usage or history of. Screenin:57 Abuse screen: Denies threats or abuse. Denies injuries from another. Nutritional hb screening: No deficits noted. Tuberculosis screening: No symptoms or risk factors identified. Fall Risk None identified. Assessment: 18:00 General: Appears in no apparent distress. Behavior is calm, cooperative. Pain: Denies hb pain. Neuro: Level of Consciousness is awake, alert, obeys commands, Oriented to person, place, time, situation, Reports dizziness. Cardiovascular: Patient's skin is warm and dry. Respiratory: Respiratory effort is even, unlabored, Respiratory pattern is regular, symmetrical. GI: Reports nausea. : No signs and/or symptoms were reported regarding the genitourinary system. EENT: No signs and/or symptoms were reported regarding the EENT system. Derm: Skin is pink, warm \T\ dry. Musculoskeletal: No signs and/or symptoms reported regarding the musculoskeletal system. 18:57 Reassessment: Patient appears in no apparent distress at this time. hb Vital Signs: 17:29 BP 149 / 96; Pulse 104; Resp 16; Temp 97.8; Pulse Ox 100% ; Weight 127.01 kg; Height 5 sv ft. 2 in. (157.48 cm); 19:03 BP 147 / 97; Pulse 89; Resp 15; Pulse Ox 99% on R/A; hb 19:59 BP 136 / 80; Pulse 80; Resp 16; Temp 98; Pulse Ox 100% on R/A; ch4 17:29 Body Mass Index 51.21 (127.01 kg, 157.48 cm) sv ED Course: 17:27 Patient arrived in ED. ds1 17:29 Triage completed. sv 17:29 Arm band placed on. sv 17:38 Alex Renteria PA is PHCP. jmm 17:38 Pk Hunter MD is Attending Physician. jmm 17:41 EKG done, by ED staff, reviewed by Alex MARCUM. mt 17:57 Rupal Prather, RN is Primary Nurse. jl7 18:20 CT Head Brain wo Cont In Process Unspecified. EDMS 18:37 XRAY Chest (1 view) In Process Unspecified. EDMS 18:57 Patient has correct armband on for positive identification. Bed in low position. Call hb light in reach. 19:24 Primary Nurse role handed off by Rupal Prather, DERICK 19:28 Evie Young, RN is Primary Nurse. ch4 20:42 IV discontinued, intact, bleeding controlled, No redness/swelling at site. Pressure ch4 dressing applied. Administered Medications: 18:07 Drug: NS 0.9% 1000 ml Route: IV; Rate: 1 bolus; Site: left forearm; jl7 18:07 Drug: Zofran (Ondansetron) 4 mg Route: IVP; Site: left forearm; jl7 Outcome: 20:23 Discharge ordered by . jmm 20:42 Patient left the ED. ch4 Signatures: Dispatcher [employer] EDMS Karen Allen bd Pravin, Rupal, RN RN Alex Renteria PA PA jmm Sanford, Abeba ds1 Erin Simon, DERICK RN Rupal Prather RN RN jl7 Jeannie Bucio mt, Christina, RN RN ch4 Corrections: (The following items were deleted from the chart) 17: 17:28 Acuity: CLAYTON 4 sv sv 17:31 17:29 Pulse 104bpm; Resp 16bpm; Pulse Ox 100%; Temp 97.8F; 127.01 kg; Height 5 ft. 2 sv in.; BMI: 51.2; sv
--- NOTE | 2020-12-21 20:23 | EDPHYS ---
Physician Documentation [facility] Name: Lauren Rinaldi Age: 50 yrs Sex: Female : 1970 Arrival Date: 12/21/2020 Time: 17:27 Bed 4 Private MD: ED Physician Pk Hunter HPI: 12/21 17:45 This 50 yrs old Female presents to ER via Ambulatory with complaints of jmm Dizziness, High Blood Pressure. 17:45 Onset: The symptoms/episode began/occurred today. Modifying factors: The symptoms are jmm alleviated by nothing, the symptoms are aggravated by nothing. Associated signs and symptoms: Pertinent negatives: shortness of breath. Is a 50-year-old female with a history of hypertension that presents to the emergency department with complaints of multiple episodes of diarrhea. Patient states she developed dizziness today, denies sensation of the room spinning but had one episode of nausea with it. Denies chest pain, shortness of breath. Patient recently states she recovered from coronavirus. Historical: - Allergies: 17:29 No Known Allergies; sv - PMHx: 17:29 Hypertension; sv - Immunization history:: Adult Immunizations up to date. - Social history:: Smoking status: Patient denies any tobacco usage or history of. ROS: 17:45 Constitutional: Negative for fever, chills, and weight loss, Cardiovascular: Negative jmm for chest pain, palpitations, and edema, Respiratory: Negative for shortness of breath, cough, wheezing, and pleuritic chest pain. 17:45 Abdomen/GI: Positive for vomiting, diarrhea. 17:45 Neuro: Positive for dizziness. 17:45 All other systems are negative. Exam: 20:21 Constitutional: This is a well developed, well nourished patient who is awake, alert, jmm and in no acute distress. Head/Face: atraumatic. Eyes: EOMI, no conjunctival erythema appreciated ENT: Moist Mucus Membranes Neck: Trachea midline, Supple Chest/axilla: Normal chest wall appearance and motion. Cardiovascular: Regular rate and rhythm. No edema appreciated Respiratory: Normal respirations, no respiratory distress appreciated Abdomen/GI: Non distended, soft Back: Normal ROM Skin: General appearance color normal MS/ Extremity: Moves all extremities, no obvious deformities appreciated, no edema noted to the lower extremities Neuro: Awake and alert, normal gait Psych: Behavior is normal, Mood is normal, Patient is cooperative and pleasant Vital Signs: 17:29 BP 149 / 96; Pulse 104; Resp 16; Temp 97.8; Pulse Ox 100% ; Weight 127.01 kg; Height 5 sv ft. 2 in. (157.48 cm); 19:03 BP 147 / 97; Pulse 89; Resp 15; Pulse Ox 99% on R/A; hb 19:59 BP 136 / 80; Pulse 80; Resp 16; Temp 98; Pulse Ox 100% on R/A; ch4 17:29 Body Mass Index 51.21 (127.01 kg, 157.48 cm) sv MDM: 17:54 Patient medically screened. [facility] 20:21 Data reviewed: vital signs, nurses notes. Counseling: I had a detailed discussion with rachelle the patient and/or guardian regarding: the historical points, exam findings, and any diagnostic results supporting the discharge/admit diagnosis, lab results, radiology results, the need for outpatient follow up, to return to the emergency department if symptoms worsen or persist or if there are any questions or concerns that arise at home. ED course: Is alert and nontoxic in appearance in the ED. Patient states feeling much better after IV fluids. Patient may be experiencing residual effects from coronavirus. I do not currently suspect an arrhythmia, signs of hypertension, bacterial infection, CVA, AMI, or any other life-threatening conditions. Patient is advised to follow PCP and otherwise given strict return precautions. Patient understood and agrees plan of care.. 12/21 17:54 Order name: Basic Metabolic Panel [facility] 12/21 17:54 Order name: CBC with Diff [facility] 12/21 17:54 Order name: LFT's; Complete Time: 18:43 [facility] 12/21 17:54 Order name: Magnesium; Complete Time: 18:43 [facility] 12/21 17:54 Order name: NT PRO-BNP; Complete Time: 18:43 [facility] 12/21 17:54 Order name: PT-INR; Complete Time: 18:52 [facility] 12/21 17:54 Order name: Troponin (emerg Dept Use Only); Complete Time: 18:43 [facility] 12/21 17:54 Order name: XRAY Chest (1 view); Complete Time: 19:23 [facility] 12/21 17:54 Order name: EKG; Complete Time: 17:56 [facility] 12/21 17:54 Order name: CT Head Brain wo Cont; Complete Time: 18:52 [facility] 12/21 17:55 Order name: Basic Metabolic Panel; Complete Time: 18:43 [facility] 12/21 17:55 Order name: CBC with Automated Diff; Complete Time: 18:43 [facility] 12/21 17:54 Order name: Cardiac monitoring; Complete Time: 18:08 [facility] 12/21 17:54 Order name: EKG - Nurse/Tech; Complete Time: 18:08 [facility] 12/21 17:54 Order name: IV Saline Lock; Complete Time: 18:08 [facility] 12/21 17:54 Order name: Labs collected and sent; Complete Time: 18:08 [facility] 12/21 17:54 Order name: O2 Per Protocol; Complete Time: 18:08 [facility] 12/21 17:54 Order name: O2 Sat Monitoring; Complete Time: 18:08 [facility] Administered Medications: 18:07 Drug: NS 0.9% 1000 ml Route: IV; Rate: 1 bolus; Site: left forearm; jl7 18:07 Drug: Zofran (Ondansetron) 4 mg Route: IVP; Site: left forearm; jl7 Disposition Summary: 12/21/20 20:23 Discharge Ordered Location: Home [facility] Condition: Stable [facility] Diagnosis - Diarrhea, unspecified [facility] Followup: [facility] - With: Private Physician - When: 2 - 3 days - Reason: Recheck today's complaints, Continuance of care, Re-evaluation by your physician Discharge Instructions: - Discharge Summary Sheet [facility] - Food Choices to Help Relieve Diarrhea, Adult [facility] - Diarrhea, Adult [facility] Forms: - Medication Reconciliation Form [facility] - Thank You Letter [facility] - Antibiotic Education [facility] - Prescription Opioid Use [facility] Addendum: 12/27/2020 19:01 Co-signature as Attending Physician, Pk Hunter MD. r n Signatures: Dispatcher [employer] Rupal Arango, RN Alex Askew PA PA [facility] Pk Hunter MD MD rn Leal, Jahala, RN RN jl7 Corrections: (The following items were deleted from the chart) 12/21 20:21 17:45 Is a 50-year-old female with a history of hypertension that presents to the [facility] emergency department with complaints of multiple episodes of diarrhea and one episode of vomiting. Patient states she developed dizziness today, denies sensation of the room spinning but had one episode of vomiting with. Denies chest pain, shortness of breath. Patient recently states she recovered from coronavirus. rachelle
[2020-12-21 20:51] VITALS: BP 136/80; TEMP 98; O2SAT 100
== END 2020-12-21 20:42 | disposition home or self-care (01) ==
LOC: ER 17:25
DX: R19.7 Diarrhea, unspecified (principal); I10 Essential (primary) hypertension
CPT/HCPCS: 36415; 70450; 71045; 80048; 80076; 83735; 83880; 84484; 85025; 85610; 93005; 96374; 99283; J2405; J7030

== ENCOUNTER 2021-03-26 14:47 | Emergency (ER) | payer SELFPAY ==
--- OUTSIDE RECORDS SUMMARY | 2021-03-26 14:50 | XMS REPORT | Continuity of Care Document ---
:1970 Author Organization [facility] t Address [address] [place] [address] [address] [place] [address] Care Team Providers Name Role Phone Toney DIAS Attending Clinician Unavailable Problems This patient has no known problems. Allergies, Adverse Reactions, Alerts Allergy Allergy Status Severity Reaction(s) Onset Inactive Treating Comm ents Source Name Type Date Date Clinician NO KNOWN Drug Active [facility] Medications This patient has no known medications. Procedures This patient has no known procedures. Encounters Start End Encounter Admission Attending Care Care Encounter Source Date/Time Date/Time Type Type Clinicians Facility Department ID 2020-11-09 2020-11-09 Outpatient LILLI CAMPBELL [facility] [id number] [facility] 14:45:00 14:45:00 FELA garcia [facility] Results This patient has no known results.
[2021-03-26 17:05] LABS: SARS-COV-2 RT PCR NEGATIVE (NEGATIVE)
--- NOTE | 2021-03-26 17:32 | ER ---
Nurse's Notes [facility] Name: Lauren Rinaldi Age: 50 yrs Sex: Female : 1970 Arrival Date: 03/26/2021 Time: 14:49 Bed 13 Private MD: Diagnosis: Acute upper respiratory infection, unspecified Presentation: 03/26 15:41 Chief complaint: Patient states: Cough, wheezing, nasal discharge and sore throat x3 vg1 days. Denies NVD, shortness of breath or difficulty breathing. Coronavirus screen: Vaccine status: Patient reports being unvaccinated. Client denies travel out of the [place] in the last 14 days. Ebola Screen: Patient negative for fever greater than or equal to 101.5 degrees Fahrenheit, and additional compatible Ebola Virus Disease symptoms. Initial Sepsis Screen: Does the patient meet any 2 criteria? No. Patient's initial sepsis screen is negative. Does the patient have a suspected source of infection? No. Patient's initial sepsis screen is negative. Risk Assessment: Do you want to hurt yourself or someone else? Patient reports no desire to harm self or others. Onset of symptoms was March 23, 2021. 15:41 Method Of Arrival: Ambulatory vg1 15:41 Acuity: CLAYTON 3 vg1 Triage Assessment: 15:43 General: Appears in no apparent distress. comfortable, Behavior is calm, cooperative. vg1 Pain: Denies pain. Respiratory: Reports cough that is productive, Airway is patent Respiratory effort is even, unlabored. GI: Patient currently denies diarrhea, nausea, vomiting. 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 - Social history:: Smoking status: Patient denies any tobacco usage or history of. - Family history:: not pertinent. - Hospitalizations: : No recent hospitalization is reported. Screenin:35 Abuse screen: Denies threats or abuse. [facility] 16:35 Nutritional screening: No deficits noted. Tuberculosis screening: No symptoms or risk [facility] factors identified. Fall Risk None identified. Assessment: 16:35 General: Appears in no apparent distress. Behavior is calm, cooperative. [facility] 16:35 Pain: Denies pain. EENT: Reports nasal congestion nasal discharge that is watery. [facility] Vital Signs: 15:41 BP 165 / 91; Pulse 86; Resp 18; Temp 97.1; Pulse Ox 99% ; Weight 122.47 kg; Height 5 vg1 ft. 2 in. (157.48 cm); Pain 0/10; 16:45 BP 154 / 85; Pulse 84; Resp 17; Pulse Ox 100% ; jh6 15:41 Body Mass Index 49.38 (122.47 kg, 157.48 cm) 1 ED Course: 14:49 Patient arrived in ED. ds1 15:43 Triage completed. 1 15:43 Arm band placed on. 1 15:46 Pk Hunter MD is Attending Physician. rn 15:51 Keri Cohen RN is Primary Nurse. [facility] 16:31 Patient has correct armband on for positive identification. Bed in low position. Warm [facility] blanket given. Pulse ox on. NIBP on. 16:31 SARS-COV-2 RT PCR (Document "Date of Onset" if Symptomatic) Sent. 5 16:31 COVID swab sent to lab. Flu and/or RSV swab sent to lab. [facility] 16:35 No provider procedures requiring assistance completed. 6 16:52 XRAY Chest (1 view) In Process Unspecified. EDOH 17:39 Patient did not have IV access during this emergency room visit. [facility] Administered Medications: No medications were administered Outcome: 17:31 Discharge ordered by . rn 17:39 Discharged to home ambulatory. [facility] 17:39 Condition: good 17:39 Discharge instructions given to patient, Instructed on discharge instructions, Demonstrated understanding of instructions. 17:40 Patient left the ED. [facility] Signatures: Dispatcher [facility] Godfrey, Abeba 1 Pk Hunter MD MD rn Martinez, Maria [facility] Elizabeth Bansal RN RN [facility] Keri Cohen RN RN [facility] Corrections: (The following items were deleted from the chart) 15:45 15:41 Pulse 86bpm; Resp 18bpm; Pulse Ox 99%; Temp 97.1F; 122.47 kg; Height 5 ft. 2 in.; vg1 BMI: 49.3; Pain 0/10; vg1 16:31 16:31 SARS-COV-2 RT PCR drawn and sent. [facility] EDMS
--- NOTE | 2021-03-26 17:32 | EDPHYS ---
Physician Documentation [facility] Name: Lauren Rinaldi Age: 50 yrs Sex: Female : 1970 Arrival Date: 03/26/2021 Time: 14:49 Bed 13 Private MD: ED Physician Pk Hunter HPI: 03/26 16:51 This 50 yrs old Female presents to ER via Ambulatory with complaints of Cough, rn congestion. 16:51 The patient or guardian reports cough. Onset: The symptoms/episode began/occurred 3 rn day(s) ago. Severity of symptoms: At their worst the symptoms were mild, in the emergency department the symptoms are unchanged. Modifying factors: The symptoms are alleviated by nothing, the symptoms are aggravated by nothing. Associated signs and symptoms: Pertinent positives: rhinorrhea, sore throat, Pertinent negatives: chest pain, diarrhea, fever, vomiting. The patient has experienced similar episodes in the past. The patient has not recently seen a physician. Patient reports cough/congestion for 3 days now. Reports daughter with similar symptoms then patient began with symptoms the next day. No fever. 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 - Social history:: Smoking status: Patient denies any tobacco usage or history of. - Family history:: not pertinent. - Hospitalizations: : No recent hospitalization is reported. ROS: 16:51 Constitutional: Negative for fever, chills, and weight loss, Eyes: Negative for injury, rn pain, redness, and discharge, ENT: + congestion and sore throat, raspy voice Cardiovascular: Negative for chest pain, palpitations, and edema, Respiratory: + cough Abdomen/GI: Negative for abdominal pain, nausea, vomiting, diarrhea, and constipation, Back: Negative for injury and pain, MS/Extremity: Negative for injury and deformity, Skin: Negative for injury, rash, and discoloration, Neuro: Negative for headache, weakness, numbness, tingling, and seizure. Exam: 16:51 Constitutional: This is a well developed, well nourished patient who is awake, alert, rn and in no acute distress. Head/Face: Normocephalic, atraumatic. Eyes: Periorbital areas with no swelling, redness, or edema. Cardiovascular: Regular rate and rhythm. No pulse deficits. Respiratory: No increased work of breathing, no retractions or nasal flaring. Skin: Warm, dry MS/ Extremity: Pulses equal, no cyanosis. Neuro: Awake and alert, GCS 15 Vital Signs: 15:41 BP 165 / 91; Pulse 86; Resp 18; Temp 97.1; Pulse Ox 99% ; Weight 122.47 kg; Height 5 vg1 ft. 2 in. (157.48 cm); Pain 0/10; 16:45 BP 154 / 85; Pulse 84; Resp 17; Pulse Ox 100% ; jh6 15:41 Body Mass Index 49.38 (122.47 kg, 157.48 cm) vg1 MDM: 15:46 Patient medically screened. rn 17:28 Differential Diagnosis: Bronchitis Influenza Upper Respiratory Infection Viral Syndrome rn Pneumonia. Data reviewed: vital signs, nurses notes, lab test result(s), radiologic studies, and as a result, I will discharge patient. Test interpretation: by ED physician or midlevel provider: plain radiologic studies, Chest x-ray negative for pneumonia. Counseling: I had a detailed discussion with the patient and/or guardian regarding: the historical points, exam findings, and any diagnostic results supporting the discharge/admit diagnosis, lab results, radiology results, the need for outpatient follow up, to return to the emergency department if symptoms worsen or persist or if there are any questions or concerns that arise at home. Response to treatment:. Special discussion: I discussed with the patient/guardian in detail that at this point there is no indication for admission to the hospital. It is understood, however, that if the symptoms persist or worsen the patient needs to return immediately for re-evaluation. 17:28 ED course: Most likely viral syndrome given daughter preceded her symptoms. Afebrile. rn No oxygen requirement. Negative pneumonia on chest x-ray.. 03/26 15:58 Order name: SARS-COV-2 RT PCR (Document "Date of Onset" if Symptomatic) rn 03/26 15:58 Order name: Strep; Complete Time: 17: rn 03/26 16:31 Order name: Throat Culture EDSC 03/26 16:31 Order name: COVID-19/FLU A+B; Complete Time: 17:05 EDSC 03/26 15:58 Order name: XRAY Chest (1 view) rn Administered Medications: No medications were administered Disposition Summary: 03/26/21 17:31 Discharge Ordered Location: Home rn Problem: new rn Symptoms: have improved rn Condition: Stable rn Diagnosis - Acute upper respiratory infection, unspecified rn Followup: rn - With: Private Physician - When: As needed - Reason: Recheck today's complaints, Re-evaluation by your physician Discharge Instructions: - Discharge Summary Sheet rn - Upper Respiratory Infection, Adult rn - Viral Respiratory Infection rn Forms: - Medication Reconciliation Form rn - Thank You Letter rn - Antibiotic intelligence intern - Prescription Opioid Use rn - Work release form eb Signatures: Dispatcher [employer] EDSC Pk Hunter MD MD rn Rolf, Elizabeth RN RN vg1 Corrections: (The following items were deleted from the chart) 16:31 15:58 SARS-COV-2 RT PCR ordered. [facility] EDSC 16:31 15:58 Influenza Screen (A \\T\\ B)+[id number].[id number] ordered. [facility] EDSC
[2021-03-26 17:56] VITALS: TEMP 97.1
[2021-03-26 18:01] VITALS: BP 154/85; O2SAT 100
--- NOTE | 2021-03-26 18:19 | RAD REPORT ---
EXAM DESCRIPTION: RAD - Chest Single View - 03/26/2021 4:52 pm CLINICAL HISTORY: CHEST PAIN COMPARISON: December 21 TECHNIQUE: AP portable chest image was obtained 03/26/2021 4:52 pm . FINDINGS: Lungs are clear. Heart and vasculature are normal. No measurable pleural effusion and no p neumothorax. No acute bony abnormality seen. No acute aortic findings suspected. IMPRESSION: No acute cardiopulmonary process. No significant change from comparison study.
== END 2021-03-26 17:40 | disposition home or self-care (01) ==
LOC: ER 14:47
DX: J06.9 Acute upper respiratory infection, unspecified (principal); I10 Essential (primary) hypertension; Z20.822 Contact with and (suspected) exposure to COVID-19
CPT/HCPCS: 0240U; 71045; 87070; 87081; 99283

== ENCOUNTER 2021-10-18 09:20 | Emergency (ER) | payer SELFPAY ==
[2021-10-18] MEDS ORDERED: HYDROCODONE/APAP 10/325 TAB ONE ×2 (10:33→10:45)
[2021-10-18] MEDS ORDERED: DIAZEPAM 5 MG TABLET ONE ×2 (10:33→10:45)
[2021-10-18] MEDS ORDERED: IBUPROFEN 400 MG TAB ONE ×2 (10:34→10:46)
--- NOTE | 2021-10-18 10:59 | RAD REPORT ---
EXAM DESCRIPTION: CT - Spine Lumbar Wo Con - 10/18/2021 10:43 am CLINICAL HISTORY: Low back pain, trauma COMPARISON: No comparisons TECHNIQUE: Axial noncontrast CT imaging of the lumbar spine was performed with coronal and sagittal re-formatted images. All CT scans are performed using dose optimization technique as appropriate and may include automated exposure control or mA/KV adjustment according to patient size. FINDINGS: No acute lumbar spine fracture seen. No aggressive marrow pattern or malalignment. Inciden tally noted 6.8 cm left adnexal cystic and solid lesion. Cholelithiasis noted. Atherosclerosis. Paraspinal tissues are normal in thickness. No paraspinal abscess or hematoma seen. Grade 1 anterolisthesis of L5 on S1. A partially calcified broad-based disc bulge is present at the L 2-3 level. This results in mild to moderate central spinal stenosis. Multilevel degenerative disc dis ease noted with moderate to severe facet degenerative changes that are most prominent at L4-5 and L5- S1. There is evidence of bilateral neural foraminal narrowing, notably at L4-5 and L5-S1. Intervertebral disc disease assessment is inherently limited by CT. Within these limitations, no high -grade canal stenosis suspected. IMPRESSION: No acute fracture of the lumbar spine. Degenerative disc disease is present as noted abo ve with varying degrees of neural foraminal narrowing and central spinal stenosis. Partially imaged cystic and solid left adnexal mass that is suspicious for an ovarian neoplasm. [facility] gynecologic referral.
--- NOTE | 2021-10-18 11:25 | RAD REPORT ---
EXAM DESCRIPTION: RAD - Pelvis - 10/18/2021 10:55 am CLINICAL HISTORY: PAIN COMPARISON: Spine Lumbar Wo Con dated 10/18/2021 FINDINGS/IMPRESSION: No acute fracture. No malalignment. Degenerative changes are present in the low er spine. Numerous pelvic phleboliths. Mild right acetabular degenerative changes.
--- NOTE | 2021-10-18 11:30 | EDPHYS ---
[facility] Name: Lauren Rinaldi Age: 51 yrs Sex: Female : 1970 Arrival Date: 10/18/2021 Time: 09:22 Bed 16 Private MD: ED Physician Yunior Amaro HPI: 10/18 10:30 This 51 yrs old Female presents to ER via Ambulatory with complaints of Back alexandria Pain. 10:30 The patient presents with pain that is acute, and decreased range of motion, and an [place]lex[place]ria injury, and tenderness. The symptoms are located in the low back, lumbar area and right low back. Onset: The symptoms/episode began/occurred 5 day(s) ago. The pain does not radiate. Associated signs and symptoms: The patient has no apparent associated signs or symptoms. The problem was sustained during a fall, while standing, in bathtub. Severity of symptoms: At their worst the symptoms were moderate, in the emergency department the symptoms are unchanged. The patient has not experienced similar symptoms in the past. 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 - Social history:: Smoking status: Patient denies any tobacco usage or history of. - Family history:: not pertinent. ROS: 10:30 Constitutional: Negative for fever, chills, and weight loss, Eyes: Negative for injury, [place]ria pain, redness, and discharge, ENT: Negative for injury, pain, and discharge, Neck: Negative for injury, pain, and swelling, Cardiovascular: Negative for chest pain, palpitations, and edema, Respiratory: Negative for shortness of breath, cough, wheezing, and pleuritic chest pain, Abdomen/GI: Negative for abdominal pain, nausea, vomiting, diarrhea, and constipation, : Negative for injury, bleeding, discharge, and swelling, MS/Extremity: Negative for injury and deformity, Skin: Negative for injury, rash, and discoloration, Neuro: Negative for headache, weakness, numbness, tingling, and seizure, Psych: Negative for depression, anxiety, suicide ideation, homicidal ideation, and hallucinations, Allergy/Immunology: Negative for hives, rash, and allergies, Endocrine: Negative for neck swelling, polydipsia, polyuria, polyphagia, and marked weight changes, Hematologic/Lymphatic: Negative for swollen nodes, abnormal bleeding, and unusual bruising. 10:30 Back: Positive for decreased range of motion, pain at rest, pain with movement, radiated pain, of the right low back. Exam: 10:30 Constitutional: This is a well developed, well nourished patient who is awake, alert, [place]ria and in no acute distress. Head/Face: Normocephalic, atraumatic. Eyes: Pupils equal round and reactive to light, extra-ocular motions intact. Lids and lashes normal. Conjunctiva and sclera are non-icteric and not injected. Cornea within normal limits. Periorbital areas with no swelling, redness, or edema. ENT: Nares patent. No nasal discharge, no septal abnormalities noted. Tympanic membranes are normal and external auditory canals are clear. Oropharynx with no redness, swelling, or masses, exudates, or evidence of obstruction, uvula midline. Mucous membranes moist. Neck: Trachea midline, no thyromegaly or masses palpated, and no cervical lymphadenopathy. Supple, full range of motion without nuchal rigidity, or vertebral point tenderness. No Meningismus. Chest/axilla: Normal chest wall appearance and motion. Nontender with no deformity. No lesions are appreciated. Cardiovascular: Regular rate and rhythm with a normal S1 and S2. No gallops, murmurs, or rubs. Normal PMI, no JVD. No pulse deficits. Respiratory: Lungs have equal breath sounds bilaterally, clear to auscultation and percussion. No rales, rhonchi or wheezes noted. No increased work of breathing, no retractions or nasal flaring. Abdomen/GI: Soft, non-tender, with normal bowel sounds. No distension or tympany. No guarding or rebound. No evidence of tenderness throughout. Female : Normal external genitalia. Skin: Warm, dry with normal turgor. Normal color with no rashes, no lesions, and no evidence of cellulitis. Neuro: Awake and alert, GCS 15, oriented to person, place, time, and situation. Cranial nerves II-XII grossly intact. Motor strength 5/5 in all extremities. Sensory grossly intact. Cerebellar exam normal. Normal gait. 10:30 Back: pain, that is mild, that is moderate, ROM is painful, normal spinal alignment noted, CVA tenderness, is absent, muscle spasm, is appreciated in the left low back, right mid back and right low back. 10:30 Musculoskeletal/extremity: Extremities: all appear grossly normal, with no appreciated pain with palpation, ROM: intact in all extremities, full active range of motion, Circulation is intact in all extremities. Sensation intact. Compartment Syndrome exam of affected extremity: is normal. Weight bearing: able to fully bear weight, DVT Exam: no swelling, negative Homans' sign noted on exam, no appreciated bluish discoloration, no erythema, no increased warmth, pain, tenderness. Vital Signs: 09:33 BP 142 / 62; Pulse 73; Resp 16; Temp 97.8; Pulse Ox 98% ; Weight 122.47 kg; Height 5 ap3 ft. 2 in. (157.48 cm); Pain 7/10; 09:33 Body Mass Index 49.38 (122.47 kg, 157.48 cm) ap3 MDM: 09:[address] [facility] 10:34 Differential diagnosis: Fatigue Fracture Obesity ruptured disc, spinal injury, sprain, [place]ria vertebral fracture. Data reviewed: vital signs, nurses notes, radiologic studies, CT scan, plain films. Data interpreted: awake overnight monitor: rate is 73 beats/min, rhythm is regular, Pulse oximetry: on room air is 98 %. Test interpretation: by ED physician or midlevel provider: plain radiologic studies. Counseling: I had a detailed discussion with the patient and/or guardian regarding: the historical points, exam findings, and any diagnostic results supporting the discharge/admit diagnosis, lab results, radiology results, the need for outpatient follow up, for definitive care, a family practitioner, a neurologist. 10/18 10:13 Order name: CT Lumbar Spine Wo Con; Complete Time: 11: alexandria 10/18 10:34 Order name: Pelvis XRAY; Complete Time: : [place]ria Administered Medications: 10:31 Drug: [place] (HYDROcodone-acetaminophen) 10 mg-325 mg 1 tabs Route: PO; jd3 12:06 Follow up: Response: No adverse reaction; RASS: Alert and Calm (0) jd3 10:31 Drug: Valium (diazepam) 5 mg Route: PO; jd3 11:30 Follow up: Response: No adverse reaction jd3 10:31 Drug: Motrin (ibuprofen) 800 mg Route: PO; jd3 11:30 Follow up: Response: No adverse reaction jd3 Disposition Summary: 10/18/21 11:29 Discharge Ordered Location: Home a[place]ria Problem: new alexandria Symptoms: have improved [place]ria Condition: Stable [place]ria Diagnosis - Fall on same level, unspecified a[place]ria - Other injury of muscle, fascia and tendon of lower back a[place]ria - Low back pain alex[place]ria - Sciatica, right side alexandria - Obesity, unspecified a[place]ria - Other ovarian cysts - 6.8 cm solid/cystic lesion, left a[place]ria - Other cholelithiasis without obstruction a[place]andria Followup: a[place]andria - With: Private Physician - When: 5 - 6 days - Reason: Recheck today's complaints, Continuance of care, Re-evaluation by your physician Followup: [place] - With: - When: 2 - 3 days - Reason: Recheck today's complaints, Re-evaluation by your physician Followup: a[place]ria - With: Maria Del Carmen Lin MD - When: 2 - 3 days - Reason: Recheck today's complaints, Re-evaluation by your physician Discharge Instructions: - Discharge Summary Sheet alexandria - Acute Back Pain, Adult alexandria - Chronic Back Pain alex[place]ria - Musculoskeletal Pain a[place]ria - Obesity, Adult alex[place]ria - Ovarian Cyst alexandria - Sciatica a[place]ria - Chronic Back Pain, [id number] a[place]ria - Obesity, Adult, [id number] alexandria - Cholelithiasis, [id number] alex[place]ria - Ovarian Tumors a[place]ria Forms: - Medication Reconciliation Form a[place]ria - Thank You Letter alexandria - Antibiotic Education alexandria - Prescription Opioid Use a[place]andria Prescriptions: - Ibuprofen 600 mg Oral Tablet - take 1 tablet by ORAL route every 6 hours As needed take with food; 30 tablet; a[place]ria Refills: 0, Product Selection Permitted - Medrol (Valerio) 4 mg Oral Tablets, Dose Pack - take 1 tablet by ORAL route as directed - follow package instructions; 1 a[place]ria packet; Refills: 0, Product Selection Permitted - Cyclobenzaprine 5 mg Oral Tablet - take 1 tablet by ORAL route 3 times per day As needed; 15 tablet; Refills: 0, [place] Product Selection Permitted - Tylenol-Codeine #3 300 mg-30 mg Oral - take 2 tablet by ORAL route every 6 hours; 20 tablet; Refills: 0, Product a[place]andria Selection Permitted Signatures: Dispatcher Yunior Smith MD MD cha Davies, Jonathon RN RN jd3 Radha Hendrix RN RN ap3
--- NOTE | 2021-10-18 11:30 | ER ---
Nurse's Notes [facility] Name: Lauren Rinaldi Age: 51 yrs Sex: Female : 1970 Arrival Date: 10/18/2021 Time: 09:22 Bed 16 Private MD: Diagnosis: Fall on same level, unspecified;Other injury of muscle, fascia and tendon of lower back;Low back pain;Sciatica, right side;Obesity, unspecified;Other ovarian cysts-6.8 cm solid/cystic lesion, left;Other cholelithiasis without obstruction Presentation: 10/18 09:33 Chief complaint: Patient states: she fell in the tub a few days ago, and has been ap3 having right lower back pain since. She reports that the pain has improved, as she states she was unable to walk yesterday due to pain. Coronavirus screen: At this time, the client does not indicate any symptoms associated with coronavirus-19. Ebola Screen: No symptoms or risks identified at this time. Initial Sepsis Screen: Does the patient meet any 2 criteria? No. Patient's initial sepsis screen is negative. Does the patient have a suspected source of infection? No. Patient's initial sepsis screen is negative. Risk Assessment: Do you want to hurt yourself or someone else? Patient reports no desire to harm self or others. Onset of symptoms was October 16, 2021. 09:33 Method Of Arrival: Ambulatory ap3 09:33 Acuity: [place] 4 ap3 Triage Assessment: 09:36 General: Appears in no apparent distress. Behavior is calm, cooperative, appropriate ap3 for age. Pain: Complains of pain in right low back Pain currently is 7 out of 10 on a pain scale. at worst was 10 out of 10 on a pain scale. Pain began suddenly, 2-3 days ago. Alleviated by rest, heat application. Neuro: Level of Consciousness is awake, alert, obeys commands, Oriented to person, place, time, situation, Gait is steady, Speech is normal. Cardiovascular: Patient's skin is warm and dry. Respiratory: Airway is patent Respiratory effort is even, unlabored, Respiratory pattern is regular, symmetrical. Musculoskeletal: Range of motion: intact in all extremities. 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 - Social history:: Smoking status: Patient denies any tobacco usage or history of. - Family history:: not pertinent. Screenin:37 Abuse screen: Denies threats or abuse. Nutritional screening: No deficits noted. ap3 Tuberculosis screening: No symptoms or risk factors identified. Fall Risk None identified. Assessment: 10:32 General: Appears in no apparent distress. comfortable, Behavior is calm, cooperative, jd3 appropriate for age. Pain: Complains of pain in low back area Pain radiates to right hip Quality of pain is described as shooting, tender. Neuro: Martell Agitation-Sedation Scale (RASS): 0 - Alert and Calm Level of Consciousness is awake, alert, obeys commands, Oriented to person, place, time, situation. Cardiovascular: Capillary refill < 3 seconds Patient's skin is warm and dry. Respiratory: Airway is patent Respiratory effort is even, unlabored, Respiratory pattern is regular, symmetrical. GI: No signs and/or symptoms were reported involving the gastrointestinal system. : No signs and/or symptoms were reported regarding the genitourinary system. EENT: No signs and/or symptoms were reported regarding the EENT system. Derm: No signs and/or symptoms reported regarding the dermatologic system. Musculoskeletal: Circulation, motion, and sensation intact. Range of motion: intact in all extremities. 12:04 Reassessment: Patient appears in no apparent distress at this time. Patient and/or jd3 family updated on plan of care and expected duration. Pain level reassessed. Patient is alert, oriented x 3, equal unlabored respirations, skin warm/dry/pink. Patient states feeling better. Vital Signs: 09:33 BP 142 / 62; Pulse 73; Resp 16; Temp 97.8; Pulse Ox 98% ; Weight 122.47 kg; Height 5 ap3 ft. 2 in. (157.48 cm); Pain 7/10; 09:33 Body Mass Index 49.38 (122.47 kg, 157.48 cm) ap3 ED Course: 09:22 Patient arrived in ED. as 09:30 Yunior Amaro MD is Attending Physician. [place]ria 09:35 Triage completed. ap3 09:36 Arm band placed on right wrist. ap3 10:14 Jose Campos RN is Primary Nurse. jd3 10:33 Patient has correct armband on for positive identification. Bed in low position. Call jd3 light in reach. Pulse ox on. NIBP on. 10:45 CT Lumbar Spine Wo Con In Process Unspecified. EDMS 10:57 Pelvis XRAY In Process Unspecified. EDMS 11:28 Derek Hart MD is Referral Physician. alexandria 11:30 Maria Del Carmen Lin MD is Referral Physician. [place]andria 12:05 No provider procedures requiring assistance completed. Patient did not have IV access jd3 during this emergency room visit. Administered Medications: 10:31 Drug: [place] (HYDROcodone-acetaminophen) 10 mg-325 mg 1 tabs Route: PO; jd3 12:06 Follow up: Response: No adverse reaction; RASS: Alert and Calm (0) jd3 10:31 Drug: Valium (diazepam) 5 mg Route: PO; jd3 11:30 Follow up: Response: No adverse reaction jd3 10:31 Drug: Motrin (ibuprofen) 800 mg Route: PO; jd3 11:30 Follow up: Response: No adverse reaction jd3 Medication: 10:34 VIS not applicable for this client. jd3 Outcome: 11:29 Discharge ordered by . alexandria 12:05 Discharged to home ambulatory, with family. jd3 12:05 Condition: stable 12:05 Discharge instructions given to patient, Instructed on discharge instructions, follow up and referral plans. medication usage, Demonstrated understanding of instructions, follow-up care, medications, Prescriptions given X 4. 12:05 Patient left the ED. jd3 Signatures: Dispatcher [employer] EDOK Yunior Amaro MD MD cha Martinez, Amelia as Jose Campos, RN RN jd3 Radha Hendrix RN RN ap3
[2021-10-18 12:24] VITALS: BP 142/62; TEMP 97.8; O2SAT 98
== END 2021-10-18 12:05 | disposition home or self-care (01) ==
LOC: ER 09:20
DX: S39.092A Other injury of muscle, fascia and tendon of lower back, initial encounter (principal); M54.31 Sciatica, right side; W18.30XA Fall on same level, unspecified, initial encounter; E66.9 Obesity, unspecified; Z68.42 Body mass index [BMI] 45.0-49.9, adult; K80.80 Other cholelithiasis without obstruction; N83.292 Other ovarian cyst, left side; I10 Essential (primary) hypertension
CPT/HCPCS: 72131; 72170